=== PATIENT | female | born 1995 | race Caucasian/White ===

== ENCOUNTER 2017-09-25 21:10 | Emergency (ER) | payer OTHER ==
[~2017-09-25] VITALS: Ht 160 cm; Wt 59.0 kg
--- NOTE | 2017-09-25 21:18 | ED.ADGEN ---
Adult General Chief Complaint Chief Complaint " I want this implant taken out..." HPI HPI Patient is a 21 year old female who presents with above hx and complaints control implant un Lt. arm. Implant has been in for months. Pt. recently discharged from . Wants to get now. State the implants sometime itches.. Pt. did take some benadryl this morning. Review of Systems Review of Systems Constitutional: Denies fever or chills [] Eyes: Denies change in visual acuity, redness, or eye pain [] HENT: Denies nasal congestion or sore throat [] Respiratory: Denies cough or shortness of breath [] Cardiovascular: No additional information not addressed in HPI [] GI: Denies abdominal pain, nausea, vomiting, bloody stools or diarrhea [] : Denies dysuria or hematuria [] Musculoskeletal: Denies back pain or joint pain [] Integument: Denies rash or skin lesions [] Complaints that implant causes her arm to itch. Neurologic: Denies headache, focal weakness or sensory changes [] Endocrine: Denies polyuria or polydipsia [] All other systems were reviewed and found to be within normal limits, except as documented in this note. Family History Family History Non Contributory Current Medications Current Medications See Nursing Allergies Allergies Possible allergy to implant Physical Exam Physical Exam Constitutional: Well developed, well nourished, no acute distress, non-toxic appearance. [] HENT: Normocephalic, atraumatic, bilateral external ears normal, oropharynx moist, no oral exudates, nose normal. [] Eyes: PERRLA, EOMI, conjunctiva normal, no discharge. [] Neck: Normal range of motion, no tenderness, supple, no stridor. [] Cardiovascular:Heart rate regular rhythm, no murmur [] Lungs & Thorax: Bilateral breath sounds clear to auscultation [] Abdomen: Bowel sounds normal, soft, no tenderness, no masses, no pulsatile masses. [] Skin: Warm, dry, no erythema, no rash. [] Small area of erythema over implant site Lt arm. Back: No tenderness, no CVA tenderness. [] Extremities: No tenderness, no cyanosis, no clubbing, ROM intact, no edema. [] Neurologic: Alert and oriented X 3, normal motor function, normal sensory function, no focal deficits noted. [] Psychologic: Affect normal, judgement normal, mood normal. [] EKG EKG [] Radiology/Procedures Radiology/Procedures [] Course & Med Decision Making Course & Med Decision Making Pertinent Labs and Imaging studies reviewed. (See chart for details). Follow with alodize machine operator for removal. [] Final Impression Final Impression 1. Request for control implant removal[] Problems: Dragon Disclaimer Dragon Disclaimer This electronic medical record was generated, in whole or in part, using a voice recognition dictation system. MARK SAGASTUME MD Sep 25, 2017 21:18
[2017-09-25 21:30] VITALS: BP 140/76
== END 2017-09-25 22:00 | disposition home or self-care (01) ==
LOC: ER 21:10
DX: Z30.8 Encounter for other contraceptive management (principal); T85.898A Other specified complication of other internal prosthetic devices, implants and grafts, initial encounter
CPT/HCPCS: 99281

== ENCOUNTER 2018-02-06 04:25 | Emergency (ER) | payer OTHER ==
[~2018-02-06] VITALS: Ht 160 cm; Wt 61.0 kg
[2018-02-06 04:28] VITALS: BP 137/94
[2018-02-06] MEDS ORDERED: IV RINGERS SOLUTION,LACTATED 1,000 ML IV SCH (04:50)
--- NOTE | 2018-02-06 04:57 | ED.ADGEN ---
Past History Past Medical History: No Pertinent History, Other Past Surgical History: No Surgical History Alcohol Use: None Drug Use: None Adult General Chief Complaint Chief Complaint ".. I ve been having chest pain off and on...for past 2 months.. but it has been constant tonight... and my mother recently diagnosis of long QT syndrome... and she said I needed to get checked out..." HPI HPI Patient is a 22 year old female who presents with above hx and complaints of central non-radiating chest pain. Pt. denies any trauma or travel or specific ill contact.s. Pt. is on control. Pt. normally follows at [facility] for care. Pt is currently feeding her 7 month by breast feeding. Pt. hx limited with her family. She states she does not talk to her family, but does not know of any sudden deaths in her family members. Review of Systems Review of Systems Constitutional: Denies fever or chills [] Eyes: Denies change in visual acuity, redness, or eye pain [] HENT: Denies nasal congestion or sore throat [] Respiratory: Denies cough or shortness of breath [] Cardiovascular: No additional information not addressed in HPI [] GI: Denies abdominal pain, nausea, vomiting, bloody stools or diarrhea [] : Denies dysuria or hematuria [] Musculoskeletal: Denies back pain or joint pain [] Integument: Denies rash or skin lesions [] Neurologic: Denies headache, focal weakness or sensory changes [] Endocrine: Denies polyuria or polydipsia [] All other systems were reviewed and found to be within normal limits, except as documented in this note. Family History Family History Hx. of Long QT syndrome with mother Current Medications Current Medications Current Medications Medications (Trade) Dose Ordered Sig/Edgar Start Time Stop Time Status Last Admin Dose Admin Aspirin (Children'S Aspirin) 324 mg 1X ONCE 02/06/18 05:00 02/06/18 05:01 UNV Lactated Ringer's 1,000 ml @ 1,000 mls/hr Q1H 02/06/18 04:50 02/06/18 05:49 UNV 02/06/18 05:09 1,000 MLS/HR Allergies Allergies NKDA Physical Exam Physical Exam Constitutional: Well developed, well nourished, no acute distress, non-toxic appearance. [] HENT: Normocephalic, atraumatic, bilateral external ears normal, oropharynx moist, no oral exudates, nose normal. []Painted eyebrows. Eyes: PERRLA, EOMI, conjunctiva normal, no discharge. [] Neck: Normal range of motion, no tenderness, supple, no stridor. [] Cardiovascular:Heart rate regular rhythm, no murmur [] Lungs & Thorax: Bilateral breath sounds clear to auscultation []Sternal chest pain with palpation. Abdomen: Bowel sounds normal, soft, no tenderness, no masses, no pulsatile masses. [] Skin: Warm, dry, no erythema, no rash. [] Back: No tenderness, no CVA tenderness. [] Extremities: No tenderness, no cyanosis, no clubbing, ROM intact, no edema. [] No cording noted Neurologic: Alert and oriented X 3, normal motor function, normal sensory function, no focal deficits noted. [] Psychologic: Affect anxious, judgement normal, mood normal. [] Current Patient Data Lab Results Laboratory Tests Test 02/06/18 03:53 02/06/18 04:32 02/06/18 04:50 POC Urine HCG, Qualitative hcg negative (Negative) Urine Collection Type Void Urine Color Straw Urine Clarity Clear Urine pH 6.0 Urine Specific [place] >=1.030 Urine Protein 30 mg/dl (NEG-TRACE) Urine Glucose (UA) Neg mg/dL (NEG) Urine Ketones (Stick) Neg mg/dL (NEG) Urine Blood Neg (NEG) Urine Nitrite Neg (NEG) Urine Bilirubin Neg (NEG) Urine Urobilinogen Dipstick 1 mg/dL (0.2 mg/dL) Urine Leukocyte Esterase Neg (NEG) Urine RBC Occ /HPF (0-2) Urine WBC 1-4 /HPF (0-4) Urine Squamous Epithelial Cells Mod /LPF Urine Bacteria Mod /HPF (0-FEW) Urine Mucus Mod /LPF Urine Opiates Screen Neg (NEG) Urine Methadone Screen Neg (NEG) Urine Barbiturates Neg (NEG) Urine Phencyclidine Screen Neg (NEG) Urine Amphetamine/Methamphetamine Neg (NEG) Urine Benzodiazepines Screen Neg (NEG) Urine Cocaine Screen Neg (NEG) Urine Cannabinoids Screen Neg (NEG) Urine Ethyl Alcohol Neg (NEG) White Blood Count 5.4 x10^3/uL (4.0-11.0) Red Blood Count 4.39 x10^6/uL (3.50-5.40) Hemoglobin 12.9 g/dL (12.0-15.5) Hematocrit 37.6 % (36.0-47.0) Mean Corpuscular Volume 86 fL (79-100) Mean Corpuscular Hemoglobin 29 pg (25-35) Mean Corpuscular Hemoglobin Concent 34 g/dL (31-37) Red Cell Distribution Width 13.2 % (11.5-14.5) Platelet Count 261 x10^3/uL (140-400) Neutrophils (%) (Auto) 51 % (31-73) Lymphocytes (%) (Auto) 37 % (24-48) Monocytes (%) (Auto) 9 % (0-9) Eosinophils (%) (Auto) 2 % (0-3) Basophils (%) (Auto) 1 % (0-3) Neutrophils # (Auto) 2.8 x10^3uL (1.8-7.7) Lymphocytes # (Auto) 2.0 x10^3/uL (1.0-4.8) Monocytes # (Auto) 0.5 x10^3/uL (0.0-1.1) Eosinophils # (Auto) 0.1 x10^3/uL (0.0-0.7) Basophils # (Auto) 0.0 x10^3/uL (0.0-0.2) Prothrombin Time 10.4 SEC (9.4-11.4) Prothrombin Time INR 1.0 (0.9-1.1) PTT 26 SEC (23-33) D-Dimer (Edda) 0.30 mg/L (0.00-0.50) Maternal Serum HCG Beta Subunit < 1 mIU/mL (0-6) Sodium Level 141 mmol/L (136-145) Potassium Level 3.8 mmol/L (3.5-5.1) Chloride Level 105 mmol/L (98-107) Carbon Dioxide Level 25 mmol/L (21-32) Anion Gap 11 (6-14) Blood Urea Nitrogen 8 mg/dL (7-20) Creatinine 0.9 mg/dL (0.6-1.0) Estimated GFR (Cockcroft-Gault) 78.3 Glucose Level 95 mg/dL (70-99) Calcium Level 9.0 mg/dL (8.5-10.1) Magnesium Level 1.8 mg/dL (1.8-2.4) Total Bilirubin 0.5 mg/dL (0.2-1.0) Direct Bilirubin 0.1 mg/dL (0.0-0.2) Aspartate Amino Transferase (AST) 23 U/L (15-37) Alanine Aminotransferase (ALT) 44 U/L (14-59) Alkaline Phosphatase 75 U/L (46-116) Creatine Kinase 64 U/L (26-192) Creatine Kinase MB (Mass) < 0.5 ng/mL (0.0-3.6) Creatine Kinase MB Relative Index 0.8 % (0-4) Troponin I Quantitative < 0.017 ng/mL (0-0.055) ER-Nyl-J-Type Natriuretic Peptide 33 pg/mL (0-124) Total Protein 7.2 g/dL (6.4-8.2) Albumin 3.6 g/dL (3.4-5.0) EKG EKG My interpretation EKG shows a sinus rhythm at 85 bpm. No acute morphology.[] Radiology/Procedures Radiology/Procedures [] Course & Med Decision Making Course & Med Decision Making Pertinent Labs and Imaging studies reviewed. (See chart for details). Continued daily aspirin. Follow-up primary care. Consider outpatient stress testing. Return if any concerns. [] Final Impression Final Impression 1. Chest Pain[]-chest wall Dragon Disclaimer Dragon Disclaimer This electronic medical record was generated, in whole or in part, using a voice recognition dictation system. MARK SAGASTUME MD Feb 06, 2018 04:57
[2018-02-06] MEDS ORDERED: ASPIRIN 81 MG TAB.CHEW PO ONE (05:00)
[2018-02-06 05:19] LABS: BASO % 1 % (0-3); EOS # 0.1 x10^3/uL (0.0-0.7); EOS % 2 % (0-3); HEMATOCRIT 37.6 % (36.0-47.0); HEMOGLOBIN 12.9 g/dL (12.0-15.5); LYMPH % 37 % (24-48); MEAN CORPUSCULAR HEMOGLOBIN 29 pg (25-35); MEAN CORPUSCULAR HGB CONC 34 g/dL (31-37); MEAN CORPUSCULAR VOLUME 86 fL (79-100); MONO # 0.5 x10^3/uL (0.0-1.1); MONO % 9 % (0-9); NEUT # 2.8 x10^3uL (1.8-7.7); NEUT % 51 % (31-73); PLATELET COUNT 261 x10^3/uL (140-400); RED BLOOD COUNT 4.39 x10^6/uL (3.50-5.40); RED CELL DISTRIBUTION WIDTH 13.2 % (11.5-14.5); WHITE BLOOD COUNT 5.4 x10^3/uL (4.0-11.0)
[2018-02-06 05:20] LABS: BARBITURATES NEG (NEG); BENZODIAZEPINES NEG (NEG); CANNABINOIDS NEG (NEG); COCAINE NEG (NEG); METHADONE NEG (NEG); OPIATES NEG (NEG); PHENCYCLIDINE NEG (NEG)
[2018-02-06 05:21] LABS: AMPHETAMINE/METHAMPHETAMINE NEG (NEG)
[2018-02-06 05:28] LABS: BILIRUBIN,URINE NEG (NEG); CLARITY,URINE CLEAR; COLOR,URINE STRAW; GLUCOSE,URINE NEG (NEG)
[2018-02-06 05:29] LABS: BACTERIA,URINE MOD /HPF (0-FEW); NITRITE,URINE NEG (NEG); RBC,URINE OCC /HPF (0-2); SQUAMOUS EPITHELIAL CELL,UR MOD /LPF; UROBILINOGEN,URINE 1 mg/dL (0.2 mg/dL)
[2018-02-06 05:37] LABS: ALBUMIN 3.6 g/dL (3.4-5.0); ALK PHOS 75 U/L (46-116); ALT (SGPT) 44 U/L (14-59); ANION GAP 11 (6-14); AST (SGOT) 23 U/L (15-37); BLOOD UREA NITROGEN 8 mg/dL (7-20); CARBON DIOXIDE 25 mmol/L (21-32); CHLORIDE 105 mmol/L (98-107); CREATININE 0.9 mg/dL (0.6-1.0); DIRECT BILIRUBIN 0.1 mg/dL (0.0-0.2); GFR 78.3; GLUCOSE 95 mg/dL (70-99); MAGNESIUM 1.8 mg/dL (1.8-2.4); POTASSIUM 3.8 mmol/L (3.5-5.1); SODIUM 141 mmol/L (136-145); TOTAL BILIRUBIN 0.5 mg/dL (0.2-1.0); TOTAL PROTEIN 7.2 g/dL (6.4-8.2)
--- NOTE | 2018-02-06 07:46 | RAD ---
Chest, 2 views, 02/06/2018: HISTORY: Chest pain, shortness of breath The heart size is normal. No pulmonary infiltrate is seen. There is no evidence of pleural fluid. IMPRESSION: No acute cardiopulmonary abnormality is detected. Electronically signed by: Mario Stone MD (02/06/2018 7:43 AM) [facility]
[2018-02-06 13:51] LABS: THYROID STIM HORMONE (TSH) 1.726 uIU/mL (0.358-3.740)
== END 2018-02-06 06:22 | disposition home or self-care (01) ==
LOC: ER 04:25
DX: R07.89 Other chest pain (principal)
CPT/HCPCS: 36415; 71046; 80048; 80061; 80076; 80307; 81001; 81025; 82553; 83735; 83880; 84443; 84484; 84702; 85025; 85379; 85610; 85730; 87086; 99285; J7120; G0479

== ENCOUNTER 2018-03-20 22:36 | Emergency (ER) | payer OTHER ==
[~2018-03-20] VITALS: Ht 160 cm; Wt 58.1 kg
[2018-03-20] MEDS ORDERED: KETOROLAC 30 MG/ML VIAL. IV ONE (23:30)
[2018-03-20] MEDS ORDERED: IV NORMAL SALINE 1,000ML 1,000 ML IV ONE (23:30)
[2018-03-20] MEDS ORDERED: ONDANSETRON PF 4 MG/2 ML VIAL. IV ONE (23:30)
[2018-03-20] MEDS ORDERED: FAMOTIDINE 20 MG/2 ML VIAL IVP ONE (23:30)
[2018-03-20 23:46] LABS: BASO # 0.1 x10^3/uL (0.0-0.2); BASO % 1 % (0-3); EOS # 0.1 x10^3/uL (0.0-0.7); EOS % 1 % (0-3); HEMOGLOBIN 13.5 g/dL (12.0-15.5); LYMPH # 2.9 x10^3/uL (1.0-4.8); LYMPH % 26 % (24-48); MEAN CORPUSCULAR HEMOGLOBIN 29 pg (25-35); MEAN CORPUSCULAR HGB CONC 34 g/dL (31-37); MEAN CORPUSCULAR VOLUME 86 fL (79-100); MONO # 0.6 x10^3/uL (0.0-1.1); MONO % 6 % (0-9); NEUT # 7.4 x10^3uL (1.8-7.7); NEUT % 67 % (31-73); PLATELET COUNT 320 x10^3/uL (140-400); RED BLOOD COUNT 4.63 x10^6/uL (3.50-5.40); RED CELL DISTRIBUTION WIDTH 12.9 % (11.5-14.5)
--- NOTE | 2018-03-20 23:46 | PHYS DOC ---
Past History Past Medical History: No Pertinent History, Other Past Surgical History: Other Additional Past Surgical Histo: Hand surgery Smoking: Non-smoker Alcohol Use: None Drug Use: None Adult General Chief Complaint Chief Complaint: NAUSEA/VOMITING/DIARRHEA HPI HPI Patient is a 22 year old female who presents to the ED due to abdominal pain. The pain began 1 hour ago and has been accompanied by vomiting. She states she has had pain like this in the past and she was seen and told it was due to "stress". She states the pain is "right below the rib cage and entire stomach". She has had nausea and nonbilious, nonbloody vomiting twice in the past hour. She rates the abdominal pain as a 10/10 and states it is a constant, sharp pain that does not radiate anywhere else. Nothing makes the pain better or worse. She took Tylenol to help with the pain before coming to the ED, but it has not helped. She states her LMP was 3 weeks ago. Review of Systems Review of Systems Constitutional: Denies fever or chills Eyes: Denies change in visual acuity, redness, or eye pain HENT: Denies nasal congestion or sore throat Respiratory: Denies cough or shortness of breath Cardiovascular: Denies chest pain or heart palpitations GI: Notes abdominal pain, nausea, vomiting; Denies bloody stools or diarrhea : Denies dysuria or hematuria Musculoskeletal: Denies back pain or joint pain Integument: Denies rash or skin lesions Neurologic: Denies headache, focal weakness or sensory changes Complete systems were reviewed and found to be within normal limits, except as documented in this note Family History Family History Noncontributory Current Medications Current Medications Current Medications Medications (Trade) Dose Ordered Sig/Edgar Start Time Stop Time Status Last Admin Dose Admin Famotidine (Pepcid Vial) 20 mg 1X ONCE 03/20/18 23:30 03/20/18 23:31 DC Ketorolac Tromethamine (Toradol 30mg Vial) 15 mg 1X ONCE 03/20/18 23:30 03/20/18 23:31 DC Ondansetron HCl (Zofran) 4 mg 1X ONCE 03/20/18 23:30 03/20/18 23:31 DC Sodium Chloride 1,000 ml @ 1,000 mls/hr 1X ONCE 03/20/18 23:30 03/21/18 00:29 Allergies Allergies Allergies Coded Allergies Type Severity Reaction Last Updated Verified Unable to Assess 02/06/18 No Physical Exam Physical Exam Constitutional: Well developed, well nourished, appears to be in pain, writhing around in hospital bed HENT: Normocephalic, atraumatic, oropharynx moist Eyes: Conjunctiva normal, no discharge Neck: Normal range of motion, no tenderness, supple Cardiovascular: Heart rate regular rhythm, no murmur Lungs & Thorax: Bilateral breath sounds clear to auscultation Abdomen: Soft, tender to palpation diffusely Skin: Warm, dry, no erythema Back: No tenderness, no CVA tenderness Extremities: No tenderness, ROM intact, no edema Neurologic: Alert and oriented X 3, normal motor function, normal sensory function, no focal deficits noted Psychologic: Affect normal, judgement normal, mood normal Current Patient Data Lab Results Laboratory Tests Test 03/20/18 23:08 POC Urine HCG, Qualitative hcg negative (Negative) EKG EKG [] Radiology/Procedures Radiology/Procedures PROCEDURE: CT ABD PELV W/ IV CONTRST ONLY INDICATION: NAUSEA VOMITING, DIFFUSE ABDOMINAL PAIN BUT MOSTLY EPIGASTRIC/RUQ
NO HX
GAVE OMNI 300 75ML IV COMPARISON: None. TECHNIQUE: Axial CT images obtained through the abdomen and pelvis with contrast. One or more of the following individualized dose reduction techniques were utilized for this examination: 1. Automated exposure control; 2. Adjustment of the mA and/or kV according to patient size; 3. Use of iterative reconstruction technique. FINDINGS: Abdominal aorta is not aneurysmal. The gallbladder somewhat distended with gallstones suspected. Mild prominence of the wall is also suspected measuring up to approximately 3 mm but difficult evaluation on CT. No peripancreatic fluid collection. Spleen unremarkable. No left-sided hydronephrosis. Urinary bladder has minimal urine within it at time of exam. No right-sided hydronephrosis. The appendix measures up to about 6 mm without adjacent inflammatory changes. No dilated loops of bowel to suggest obstruction. IMPRESSION: 1. There is some dilatation of the gallbladder with suspicion for gallstones. May be helpful to obtain a ultrasound to further evaluate for gallbladder disease given these findings. There is also some questionable mild prominence of some of the intrahepatic bile ducts. 2. No evidence of bowel obstruction. 3. No hydronephrosis or periappendiceal inflammation Electronically signed by: Tapan Willams MD (03/21/2018 1:29 AM) [id number] Course & Med Decision Making Course & Med Decision Making Patient is a 22 year old female who presents to the ED due to abdominal pain, nausea, and vomiting. This began one hour ago. Pertinent Labs and Imaging studies reviewed. (See chart for details). Urine hcg was negative. Patient was given Ketorolac, famotidine, and Zofran for her symptoms, as well as 1L normal saline with interval improvement of symptoms. CBC and CMP showed no significant abnormalities. LFTs/lipase also within normal limits. CT of the abdomen and pelvis with IV contrast showed cholelithiasis without definitive signs of cholecystitis or choledocholithiasis. Discussed findings with patient. Offered to call light technician to perform ultrasound in the emergency department for further evaluation, transfer for intractable pain and nausea to [facility] for surgical evaluation, or discharge home with prescriptions for pain and nausea and number for outpatient follow-up with surgeon. Patient elected to follow up as outpatient with general surgeon. Patient stable for discharge with outpatient follow-up with PCP/general surgery. General surgery referral provided. Discussed findings and plan with patient and family, who acknowledge understanding and agreement. Dragon Disclaimer Dragon Disclaimer This electronic medical record was generated, in whole or in part, using a voice recognition dictation system. Departure Departure: Impression: Primary Impression: Biliary colic Disposition: 01 HOME, SELF-CARE Condition: STABLE Referrals: JUANJO BOWMAN MD (PCP) JANET JACOB MD, THOMAS W MD Patient Instructions: Biliary Colic Scripts Famotidine (PEPCID) 20 Mg Tablet 1 TAB PO BID, #20 TAB 0 Refills Prov: MICK GIBSON DO 03/21/18 Hydrocodone Bit/Acetaminophen (NORCO 5-325 TABLET) 1 Each Tablet 1 TAB PO Q6HRS for PAIN, #14 TAB Prov: MICK GIBSON DO 03/21/18 Ondansetron (ONDANSETRON ODT) 4 Mg Tab.rapdis 1 TAB PO PRN Q6-8HRS for NAUSEA, #16 TAB Prov: MICK GIBSON DO 03/21/18 MICK GIBSON DO Mar 20, 2018 23:46
[2018-03-20 23:51] LABS: BACTERIA,URINE 0 /HPF (0-FEW); BILIRUBIN,URINE NEG (NEG); CLARITY,URINE CLEAR; COLOR,URINE YELLOW; GLUCOSE,URINE NEG (NEG); NITRITE,URINE NEG (NEG); RBC,URINE 0 /HPF (0-2); SQUAMOUS EPITHELIAL CELL,UR MOD /LPF; UROBILINOGEN,URINE 0.2 mg/dL (0.2 mg/dL)
[2018-03-20 23:58] LABS: ALBUMIN 3.5 g/dL (3.4-5.0); ALBUMIN/GLOBULIN RATIO 0.8 (1.0-1.7); CALCIUM 9.3 mg/dL (8.5-10.1); GFR 69.3; MAGNESIUM 1.7 mg/dL (1.8-2.4); POTASSIUM 3.2 mmol/L (3.5-5.1); TOTAL BILIRUBIN 0.3 mg/dL (0.2-1.0); TOTAL PROTEIN 7.8 g/dL (6.4-8.2)
[2018-03-21] MEDS ORDERED: IOHEXOL 300 MG/ML 75 ML VIAL. IV ONE (00:30)
[2018-03-21] MEDS ORDERED: CONTRAST GIVEN MC PRN (00:30)
--- NOTE | 2018-03-21 01:33 | RAD ---
INDICATION: NAUSEA VOMITING, DIFFUSE ABDOMINAL PAIN BUT MOSTLY EPIGASTRIC/RUQ
NO HX
GAVE OMNI 300 75ML IV COMPARISON: None. TECHNIQUE: Axial CT images obtained through the abdomen and pelvis with contrast. One or more of the following individualized dose reduction techniques were utilized for this examination: 1. Automated exposure control; 2. Adjustment of the mA and/or kV according to patient size; 3. Use of iterative reconstruction technique. FINDINGS: Abdominal aorta is not aneurysmal. The gallbladder somewhat distended with gallstones suspected. Mild prominence of the wall is also suspected measuring up to approximately 3 mm but difficult evaluation on CT. No peripancreatic fluid collection. Spleen unremarkable. No left-sided hydronephrosis. Urinary bladder has minimal urine within it at time of exam. No right-sided hydronephrosis. The appendix measures up to about 6 mm without adjacent inflammatory changes. No dilated loops of bowel to suggest obstruction. IMPRESSION: 1. There is some dilatation of the gallbladder with suspicion for gallstones. May be helpful to obtain a ultrasound to further evaluate for gallbladder disease given these findings. There is also some questionable mild prominence of some of the intrahepatic bile ducts. 2. No evidence of bowel obstruction. 3. No hydronephrosis or periappendiceal inflammation Electronically signed by: Tapan Willams MD (03/21/2018 1:29 AM) [facility]
[2018-03-21] MEDS ORDERED: ONDA4TAB12 PO (01:52)
[2018-03-21] MEDS ORDERED: FAMO-63 PO (01:52)
[2018-03-21] MEDS ORDERED: HYDR-971 PO (01:52)
[2018-03-21 02:00] VITALS: BP 110/53
== END 2018-03-21 02:05 | disposition home or self-care (01) ==
LOC: ER 22:36
DX: K80.50 Calculus of bile duct without cholangitis or cholecystitis without obstruction (principal); R11.2 Nausea with vomiting, unspecified
CPT/HCPCS: 36415; 74177; 80053; 81001; 81025; 83690; 83735; 85025; 87086; 96361; 96374; 96375; 99285; J1885; J2405; Q9967; S0028; J7030

== ENCOUNTER 2018-05-02 16:23 | Emergency (ER) | payer OTHER ==
[~2018-05-02 16:23] MED LIST: FAMO-63 PO; HYDR-3165 PO; ONDA4TAB12 PO
[2018-05-02] MEDS ORDERED: IV NORMAL SALINE 1,000ML 1,000 ML IV SCH (16:34)
[2018-05-02 16:56] LABS: BASO % 1 % (0-3); EOS % 0 % (0-3); HEMATOCRIT 36.9 % (36.0-47.0); HEMOGLOBIN 12.4 g/dL (12.0-15.5); LYMPH % 25 % (24-48); MEAN CORPUSCULAR HEMOGLOBIN 29 pg (25-35); MEAN CORPUSCULAR HGB CONC 34 g/dL (31-37); MEAN CORPUSCULAR VOLUME 88 fL (79-100); MONO # 0.7 x10^3/uL (0.0-1.1); MONO % 8 % (0-9); NEUT # 5.3 x10^3uL (1.8-7.7); NEUT % 66 % (31-73); PLATELET COUNT 328 x10^3/uL (140-400); RED BLOOD COUNT 4.22 x10^6/uL (3.50-5.40); RED CELL DISTRIBUTION WIDTH 13.1 % (11.5-14.5)
[2018-05-02] MEDS ORDERED: ONDANSETRON PF 4 MG/2 ML VIAL. IV ONE (17:00)
[2018-05-02] MEDS ORDERED: KETOROLAC 30 MG/ML VIAL. IV ONE (17:00)
[2018-05-02 17:12] LABS: ALBUMIN 3.5 g/dL (3.4-5.0); ALBUMIN/GLOBULIN RATIO 0.9 (1.0-1.7); CALCIUM 8.6 mg/dL (8.5-10.1); CREATININE 0.9 mg/dL (0.6-1.0); GFR 78.3; POTASSIUM 3.1 mmol/L (3.5-5.1); TOTAL BILIRUBIN 0.3 mg/dL (0.2-1.0); TOTAL PROTEIN 7.6 g/dL (6.4-8.2)
[2018-05-02 17:56] LABS: BILIRUBIN,URINE NEG (NEG); CLARITY,URINE CLOUDY; COLOR,URINE YELLOW; GLUCOSE,URINE NEG (NEG); NITRITE,URINE NEG (NEG); RBC,URINE OCC /HPF (0-2); UROBILINOGEN,URINE 1 mg/dL (0.2 mg/dL)
[2018-05-02 17:57] LABS: AMORPHOUS SEDIMENT,UR PRESENT /HPF; BACTERIA,URINE MANY /HPF (0-FEW); SQUAMOUS EPITHELIAL CELL,UR FEW /LPF
[2018-05-02] MEDS ORDERED: IOHEXOL 300 MG/ML 75 ML VIAL. IV ONE (18:00)
--- NOTE | 2018-05-02 18:11 | PHYS DOC ---
Past History Past Medical History: No Pertinent History Past Surgical History: Cholecystectomy Additional Past Surgical Histo: Hand surgery Smoking: Non-smoker Alcohol Use: None Drug Use: None Adult General Chief Complaint Chief Complaint: NAUSEA/VOMITING/DIARRHEA HPI HPI Patient is a 22 year old female who presents with thinning of nausea and vomiting and abdominal pain. Patient had laparoscopic cholecystectomy at [facility] yesterday and was discharged home prescription of Lortab. Patient complaining of more than 10 episodes of vomiting and generalized abdominal pain and unable to eat food. Patient states she was able to tolerate some liquids. Patient denies fever and chills, diarrhea, urinary symptoms, . Patient did not have bowel movement after her surgery but had flatus. Review of Systems Review of Systems Constitutional: Denies fever or chills [] Eyes: Denies change in visual acuity, redness, or eye pain [] HENT: Denies nasal congestion or sore throat [] Respiratory: Denies cough or shortness of breath [] Cardiovascular: No additional information not addressed in HPI [] GI: Reports abdominal pain, nausea, vomiting, denies bloody stools or diarrhea [ ] : Denies dysuria or hematuria [] Musculoskeletal: Denies back pain or joint pain [] Integument: Denies rash or skin lesions [] Neurologic: Denies headache, focal weakness or sensory changes [] Endocrine: Denies polyuria or polydipsia [] All other systems were reviewed and found to be within normal limits, except as documented in this note. Current Medications Current Medications Current Medications Medications (Trade) Dose Ordered Sig/Edgar Start Time Stop Time Status Last Admin Dose Admin Iohexol (Omnipaque 300 Mg/ml) 75 ml 1X ONCE 05/02/18 18:00 05/02/18 18:01 DC 05/02/18 17:55 75 ML Ketorolac Tromethamine (Toradol 30mg Vial) 30 mg 1X ONCE 05/02/18 17:00 05/02/18 17:01 DC 05/02/18 16:48 30 MG Ondansetron HCl (Zofran) 4 mg 1X ONCE 05/02/18 17:00 05/02/18 17:01 DC 05/02/18 16:48 4 MG Sodium Chloride 1,000 ml @ 1,000 mls/hr Q1H 05/02/18 16:34 05/02/18 17:33 DC 05/02/18 16:47 1,000 MLS/HR Allergies Allergies Allergies Coded Allergies Type Severity Reaction Last Updated Verified No Known Drug Allergies 03/21/18 No Physical Exam Physical Exam Constitutional: Well developed, well nourished, mild distress, non-toxic appearance. [] HENT: Normocephalic, atraumatic, oropharynx dry, no oral exudates, nose normal. [] Eyes: PERRLA, EOMI, conjunctiva normal, no discharge. [] Neck: Normal range of motion, no tenderness, supple, no stridor. [] Cardiovascular:Heart rate regular rhythm, no murmur [] Lungs & Thorax: Bilateral breath sounds clear to auscultation [] Abdomen: Bowel sounds normal, soft, clean surgical wound, guarding in area of surgery, no tenderness, no masses, no pulsatile masses. [] Skin: Warm, dry, no erythema, no rash. [] Back: No tenderness, no CVA tenderness. [] Extremities: No tenderness, no cyanosis, no clubbing, ROM intact, no edema. [] Neurologic: Alert and oriented X 3, normal motor function, normal sensory function, no focal deficits noted. [] Psychologic: Affect normal, judgement normal, mood normal. [] Current Patient Data Vital Signs Vital Signs Date Time Temp Pulse Resp B/P (MAP) Pulse Ox O2 Delivery O2 Flow Rate FiO2 05/02/18 16:28 98.2 80 16 99 Room Air Lab Results Laboratory Tests Test 05/02/18 16:42 05/02/18 17:30 White Blood Count 8.0 x10^3/uL (4.0-11.0) Red Blood Count 4.22 x10^6/uL (3.50-5.40) Hemoglobin 12.4 g/dL (12.0-15.5) Hematocrit 36.9 % (36.0-47.0) Mean Corpuscular Volume 88 fL (79-100) Mean Corpuscular Hemoglobin 29 pg (25-35) Mean Corpuscular Hemoglobin Concent 34 g/dL (31-37) Red Cell Distribution Width 13.1 % (11.5-14.5) Platelet Count 328 x10^3/uL (140-400) Neutrophils (%) (Auto) 66 % (31-73) Lymphocytes (%) (Auto) 25 % (24-48) Monocytes (%) (Auto) 8 % (0-9) Eosinophils (%) (Auto) 0 % (0-3) Basophils (%) (Auto) 1 % (0-3) Neutrophils # (Auto) 5.3 x10^3uL (1.8-7.7) Lymphocytes # (Auto) 2.0 x10^3/uL (1.0-4.8) Monocytes # (Auto) 0.7 x10^3/uL (0.0-1.1) Eosinophils # (Auto) 0.0 x10^3/uL (0.0-0.7) Basophils # (Auto) 0.0 x10^3/uL (0.0-0.2) Sodium Level 138 mmol/L (136-145) Potassium Level 3.1 mmol/L (3.5-5.1) L Chloride Level 100 mmol/L (98-107) Carbon Dioxide Level 29 mmol/L (21-32) Anion Gap 9 (6-14) Blood Urea Nitrogen 9 mg/dL (7-20) Creatinine 0.9 mg/dL (0.6-1.0) Estimated GFR (Cockcroft-Gault) 78.3 BUN/Creatinine Ratio 10 (6-20) Glucose Level 102 mg/dL (70-99) H Calcium Level 8.6 mg/dL (8.5-10.1) Total Bilirubin 0.3 mg/dL (0.2-1.0) Aspartate Amino Transferase (AST) 22 U/L (15-37) Alanine Aminotransferase (ALT) 33 U/L (14-59) Alkaline Phosphatase 68 U/L (46-116) Total Protein 7.6 g/dL (6.4-8.2) Albumin 3.5 g/dL (3.4-5.0) Albumin/Globulin Ratio 0.9 (1.0-1.7) L Lipase 237 U/L (73-393) Urine Collection Type Unknown Urine Color Yellow Urine Clarity Cloudy Urine pH 7.0 Urine Specific [place] 1.020 Urine Protein Neg (NEG-TRACE) Urine Glucose (UA) Neg mg/dL (NEG) Urine Ketones (Stick) Neg mg/dL (NEG) Urine Blood Neg (NEG) Urine Nitrite Neg (NEG) Urine Bilirubin Neg (NEG) Urine Urobilinogen Dipstick 1 mg/dL (0.2 mg/dL) Urine Leukocyte Esterase Mod (NEG) Urine RBC Occ /HPF (0-2) Urine WBC 11-20 /HPF (0-4) Urine Squamous Epithelial Cells Few /LPF Urine Amorphous Sediment Present /HPF Urine Bacteria Many /HPF (0-FEW) EKG EKG [] Radiology/Procedures Radiology/Procedures CT= small amt free fluid. No acute surgical findings.[] Course & Med Decision Making Course & Med Decision Making Pertinent Labs and Imaging studies reviewed. (See chart for details) Evaluation of patient in ER showed 22-year-old female patient with complaining of nausea and vomiting after laparoscopic cholecystectomy yesterday. She had potassium of 3.1. Of abdomen and pelvis is pending. Patient care transferred to Dr. Smith at [address]. See Dr[address] Garcia report for details. 1. Post op. discomfort-Cholecystectomy 2. Nausea and Vomiting 3. UTI 4. Hypokalemia 3.1 Pt. push clear fluids and fruit juices. Clear fluids x 24 hr. No solid or milk products. Take Zofran 8 up to 4 x day for vomiting. Pt. take Bactrim DS twice a day. Must follow up with primary and surgery as directed. Return if any concerns. Dragon Disclaimer Dragon Disclaimer This electronic medical record was generated, in whole or in part, using a voice recognition dictation system. Departure Departure: Impression: Primary Impression: Nausea & vomiting Additional Impressions: Hypokalemia Postoperative abdominal pain Referrals: JUANJO BOWMAN MD (PCP) Scripts Ondansetron (ZOFRAN ODT) 8 Mg Tab.rapdis 8 MG PO QIDPRN PRN for NAUSEA/VOMITING, #30 BOTTLE Prov: MRAK SMITH MD 05/02/18 Sulfamethoxazole/Trimethoprim (BACTRIM DS TABLET) 1 Each Tablet 1 TAB PO BID for uti, #14 TAB Prov: MARK SMITH MD 05/02/18 Problem Qualifiers ELIJAH GARCIA MD May 02, 2018 18:10 MARK SMITH MD May 03, 2018 09:11
--- NOTE | 2018-05-02 18:16 | RAD ---
CT ABD PELV W/ IV CONTRST ONLY dated 05/02/2018 5:39 PM Indication: Abdominal pain.cholecystectomy yesterday, nausea and vomiting and pain, HX of D+C , OMNI 300, 75 mL . Comparison: 03/21/2018 Technique: Contiguous axial imaging of the abdomen and pelvis performed after the intravenous administration of 75 cc Omnipaque 300 One or more of the following individualized dose reduction techniques were utilized for this examination: 1. Automated exposure control 2. Adjustment of the mA and/or kV according to patient size 3. Use of iterative reconstruction technique Findings: Limited images of lung bases are clear. Heart size within normal limits. No pleural or pericardial effusion. Liver, spleen, pancreas, adrenal glands and kidneys are unremarkable. No hydronephrosis. The gallbladder is surgically absent. Unopacified GI tract normal in caliber and contour. No focal bowel wall thickening. No inflammatory stranding in the mesentery. Appendix normal in caliber. No ascites or lymphadenopathy. Abdominal aorta normal in caliber. Pelvis show nondistended urinary bladder. Uterus and adnexa are unremarkable. There is a small amount of free fluid. No pelvic lymphadenopathy. Bone windows show no acute findings. There is some indurated subcutaneous tissues of the anterior abdominal wall with small bubbles of gas, likely related to subcutaneous injection sites. IMPRESSION: 1. No acute abnormality of abdomen or pelvis. Normal appendix. 2. Interval cholecystectomy. 3. Small amount of free pelvic fluid, nonspecific. Electronically signed by: Praful Trejo MD (05/02/2018 6:13 PM) [facility]
[2018-05-02] MEDS ORDERED: SULF1TAB24 PO (18:25)
[2018-05-02] MEDS ORDERED: ONDA8TAB12 PO (18:25)
[2018-05-02] MEDS ORDERED: SMZ/TMP 800/160MG TABLET. PO ONE (18:30)
[2018-05-02 19:19] VITALS: BP 122/78
== END 2018-05-02 19:21 | disposition home or self-care (01) ==
LOC: ER 16:23
DX: N39.0 Urinary tract infection, site not specified (principal); G89.18 Other acute postprocedural pain; R10.84 Generalized abdominal pain; R11.2 Nausea with vomiting, unspecified; E87.6 Hypokalemia; Z90.49 Acquired absence of other specified parts of digestive tract
CPT/HCPCS: 36415; 74177; 80053; 81001; 83690; 85025; 87086; 96361; 96374; 96375; 99285; J1885; J2405; Q9967; J7030

== ENCOUNTER 2018-08-26 18:33 | Emergency (ER) | payer OTHER ==
[~2018-08-26] VITALS: Ht 160 cm; Wt 53.1 kg
[~2018-08-26 18:33] MED LIST changes: +ONDA8TAB12 PO; +SULF1TAB24 PO
--- NOTE | 2018-08-26 18:38 | ED.ADGEN ---
Past History Past Medical History: No Pertinent History Past Surgical History: Cholecystectomy Additional Past Surgical Histo: Hand surgery Smoking: Non-smoker Alcohol Use: None Drug Use: None Adult General Chief Complaint Chief Complaint ".. I ve got this really sore throat... I can't hardly swallow... " HPI HPI Patient is a 22 year old female was carried dependent who presents with above hx and complaints sore throat and fever. Patient states symptoms present for the past couple days. Eating food is painful. Patient denies any specific ill contacts. Patient denies any travel. Patient denies any history immunosuppression. Patient is normally healthy. No exposures to personnel have been overseas recently. She states sore throat feels like previous episode of streptococcal infection. Patient normally follows at [place] Review of Systems Review of Systems Constitutional: Subjective complaints of fever fever or chills [] Eyes: Denies change in visual acuity, redness, or eye pain [] HENT: History of nasal congestion , drainage and sore throat [] Respiratory: Denies cough or shortness of breath [] Cardiovascular: No additional information not addressed in HPI [] GI: Denies abdominal pain, nausea, vomiting, bloody stools or diarrhea [] : Denies dysuria or hematuria [] Musculoskeletal: Denies back pain or joint pain [] Integument: Denies rash or skin lesions [] Neurologic: Denies headache, focal weakness or sensory changes [] Endocrine: Denies polyuria or polydipsia [] All other systems were reviewed and found to be within normal limits, except as documented in this note. Family History Family History Noncontributory Current Medications Current Medications Current Medications Medications (Trade) Dose Ordered Sig/Edgar Start Time Stop Time Status Last Admin Dose Admin Prednisone (Prednisone) 50 mg 1X ONCE 08/26/18 18:45 08/26/18 18:46 DC 08/26/18 19:37 50 MG Allergies Allergies Allergies Coded Allergies Type Severity Reaction Last Updated Verified No Known Drug Allergies 03/21/18 No Physical Exam Physical Exam Constitutional: Well developed, well nourished, moderately acute distress, non- toxic appearance. [] HENT: Normocephalic, atraumatic, bilateral external ears normal, oropharynx moist, injected pharynx with postnasal drip, no oral exudates, nose swollen turbinates with clear rhinorrhea Eyes: PERRLA, EOMI, conjunctiva normal, no discharge. [] Neck: Normal range of motion, no tenderness, supple, no stridor. [] No adenopathy anterior chain Cardiovascular:Heart rate regular rhythm, no murmur [] Lungs & Thorax: Bilateral breath sounds clear to auscultation [] Abdomen: Bowel sounds normal, soft, no tenderness, no masses, no pulsatile masses. [] Skin: Warm, dry, no erythema, no rash. [] Back: No tenderness, no CVA tenderness. [] Extremities: No tenderness, no cyanosis, no clubbing, ROM intact, no edema. [] Neurologic: Alert and oriented X 3, normal motor function, normal sensory function, no focal deficits noted. [] Psychologic: Affect anxious, judgement normal, mood normal. [] Current Patient Data Vital Signs Vital Signs Date Time Temp Pulse Resp B/P (MAP) Pulse Ox O2 Delivery O2 Flow Rate FiO2 08/26/18 20:30 76 16 126/70 (88) 99 Room Air 08/26/18 18:40 98.5 Lab Results Laboratory Tests Test 08/26/18 18:55 08/26/18 19:00 Influenza Type A (Rapid) Negative (NEGATIVE) Influenza Type B (Rapid) Negative (NEGATIVE) Group A Streptococcus Rapid Negative (NEGATIVE) Urine Collection Type Unknown Urine Color Yellow Urine Clarity Hazy Urine pH 6.5 Urine Specific [place] 1.020 Urine Protein Neg (NEG-TRACE) Urine Glucose (UA) Neg mg/dL (NEG) Urine Ketones (Stick) Neg mg/dL (NEG) Urine Blood Neg (NEG) Urine Nitrite Neg (NEG) Urine Bilirubin Neg (NEG) Urine Urobilinogen Dipstick 0.2 mg/dL (0.2 mg/dL) Urine Leukocyte Esterase Trace (NEG) Urine RBC 0 /HPF (0-2) Urine WBC Occ /HPF (0-4) Urine Squamous Epithelial Cells None /LPF Urine Bacteria 0 /HPF (0-FEW) EKG EKG [] Radiology/Procedures Radiology/Procedures [] Course & Med Decision Making Course & Med Decision Making Pertinent Labs and Imaging studies reviewed. (See chart for details). Patient to gargle with Listerine 4 times a day. Patient take Tylenol and ibuprofen as needed for pain. Patient may take Benadryl liquid for topical anesthesia. Patient may take liquid ibuprofen for topical anesthesia. Push fluids. Follow-up primary care. Return if any concerns. [] Final Impression Final Impression 1. Pharyngitis[]-viral syndrome Dragon Disclaimer Esa Disclaimer This electronic medical record was generated, in whole or in part, using a voice recognition dictation system. Discharge Summary Visit Information Final Diagnosis Problems Medical Problems: (1) Viral syndrome Status: Acute Brief Hospital Course Allergies Allergies Coded Allergies Type Severity Reaction Last Updated Verified No Known Drug Allergies 03/21/18 No Vital Signs Vital Signs Date Time Temp Pulse Resp B/P (MAP) Pulse Ox O2 Delivery O2 Flow Rate FiO2 08/26/18 20:30 76 16 126/70 (88) 99 Room Air 08/26/18 18:40 98.5 Lab Results Laboratory Tests Test 08/26/18 18:55 08/26/18 19:00 Influenza Type A (Rapid) Negative (NEGATIVE) Influenza Type B (Rapid) Negative (NEGATIVE) Group A Streptococcus Rapid Negative (NEGATIVE) Urine Collection Type Unknown Urine Color Yellow Urine Clarity Hazy Urine pH 6.5 Urine Specific [place] 1.020 Urine Protein Neg (NEG-TRACE) Urine Glucose (UA) Neg mg/dL (NEG) Urine Ketones (Stick) Neg mg/dL (NEG) Urine Blood Neg (NEG) Urine Nitrite Neg (NEG) Urine Bilirubin Neg (NEG) Urine Urobilinogen Dipstick 0.2 mg/dL (0.2 mg/dL) Urine Leukocyte Esterase Trace (NEG) Urine RBC 0 /HPF (0-2) Urine WBC Occ /HPF (0-4) Urine Squamous Epithelial Cells None /LPF Urine Bacteria 0 /HPF (0-FEW) Brief Hospital Course Ms. Rogers is a 22 old female who presented with viral pharyngitis Discharge Information Condition at Discharge: Improved, Stable Disposition/Orders: D/C to Home Dischare Medications Current Medications Prednisone (Prednisone) 50 mg 1X ONCE PO Last administered on 08/26/18at 19:37 ; Admin Dose 50 MG; Start 08/26/18 at 18:45; Stop 08/26/18 at 18:46; Status DC Active Scripts Active Benadryl Allergy (Diphenhydramine Hcl) 12.5 Mg/5 Ml Liquid 25 Mg PO QIDPRN Ibuprofen 100 Mg/5 Ml Oral.susp 400 Mg PO QIDPRN PRN Zofran Odt (Ondansetron) 8 Mg Tab.rapdis 8 Mg PO QIDPRN PRN Bactrim Ds Tablet (Sulfamethoxazole/Trimethoprim) 1 Each Tablet 1 Tab PO BID Pepcid (Famotidine) 20 Mg Tablet 1 Tab PO BID [place] 5-325 Tablet (Hydrocodone Bit/Acetaminophen) 1 Each Tablet 1 Tab PO Q6HRS Ondansetron Odt (Ondansetron) 4 Mg Tab.rapdis 1 Tab PO PRN Q6-8HRS Esa Disclaimer This chart was dictated in whole or in part using Voice Recognition software in a busy, high-work load, and often noisy Emergency Department environment. It may contain unintended and wholly unrecognized errors or omissions. MARK SAGASTUME MD Aug 26, 2018 18:38
[2018-08-26] MEDS ORDERED: predniSONE 10 MG TABLET PO ONE (18:45)
[2018-08-26 19:56] LABS: BILIRUBIN,URINE NEG (NEG); CLARITY,URINE HAZY; COLOR,URINE YELLOW; GLUCOSE,URINE NEG (NEG)
[2018-08-26 19:57] LABS: BACTERIA,URINE 0 /HPF (0-FEW); NITRITE,URINE NEG (NEG); RBC,URINE 0 /HPF (0-2); UROBILINOGEN,URINE 0.2 mg/dL (0.2 mg/dL); WBC,URINE OCC /HPF (0-4)
[2018-08-26 20:06] LABS: INFLUENZA A PATIENT NEGATIVE (NEGATIVE); INFLUENZA B PATIENT NEGATIVE (NEGATIVE)
[2018-08-26] MEDS ORDERED: DIPH-121 PO (20:17)
[2018-08-26] MEDS ORDERED: IBUP100O25 PO (20:17)
[2018-08-26 20:30] VITALS: BP 126/70
== END 2018-08-26 20:38 | disposition home or self-care (01) ==
LOC: ER 18:33
DX: B34.9 Viral infection, unspecified (principal)
CPT/HCPCS: 81001; 87070; 87086; 87804; 87880; 99283; J7512

== ENCOUNTER 2018-10-20 01:16 | Emergency (ER) | payer OTHER ==
[~2018-10-20] VITALS: Ht 160 cm; Wt 58.0 kg
[~2018-10-20 01:16] MED LIST changes: +DIPH-121 PO; +IBUP100O25 PO
--- NOTE | 2018-10-20 01:28 | ED.ADGEN ---
Past History Past Medical History: No Pertinent History Past Surgical History: Cholecystectomy Additional Past Surgical Histo: Hand surgery Smoking: Non-smoker Alcohol Use: None Drug Use: None Adult General Chief Complaint Chief Complaint "..I ve been having chest pain now.. for over a month.. here in center of my chest.. with deep breaths. .. or any movements..." HPI HPI Patient is a 22 year old female who presents with above hx and complaints of Chest pain the past month. Pt. relates chest wall component, central and with movement or deep breaths, or coughs.. Pt. denies trauma, specific ill contacts. Pt. currently rates pain as 5/10. 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 Pt. does not smoke. Pt. recent took off control patch because it caused hives. Pt. also has had her hair started falling out. Review of Systems Review of Systems Constitutional: Denies fever or chills [] Eyes: Denies change in visual acuity, redness, or eye pain [] HENT: Denies nasal congestion or sore throat [] Respiratory: Denies cough or shortness of breath [] Cardiovascular: No additional information not addressed in HPI [] GI: Denies abdominal pain, nausea, vomiting, bloody stools or diarrhea [] : Denies dysuria or hematuria [] Musculoskeletal: Denies back pain or joint pain [] Integument: Denies rash or skin lesions [] Hair loss. Neurologic: Denies headache, focal weakness or sensory changes [] Endocrine: Denies polyuria or polydipsia [] All other systems were reviewed and found to be within normal limits, except as documented in this note. Family History Family History Mother has long Q-T syndrome, Transplant Current Medications Current Medications Current Medications Medications (Trade) Dose Ordered Sig/Edgar Start Time Stop Time Status Last Admin Dose Admin Ketorolac Tromethamine (Toradol 30mg Vial) 30 mg 1X ONCE 10/20/18 03:00 10/20/18 03:01 DC 10/20/18 03:06 30 MG Lactated Ringer's 1,000 ml @ 1,000 mls/hr Q1H 10/20/18 01:45 10/20/18 02:44 DC Allergies Allergies Allergies Coded Allergies Type Severity Reaction Last Updated Verified ethinyl estradiol Allergy Intermediate Hives 10/20/18 Yes etonogestrel Allergy Intermediate Hives 10/20/18 Yes norelgestromin Allergy Intermediate Hives 10/20/18 Yes Physical Exam Physical Exam Constitutional: Well developed, well nourished, moderate distress, non-toxic appearance. [] HENT: Normocephalic, atraumatic, bilateral external ears normal, oropharynx moist, no oral exudates, nose normal. [] Eyes: PERRLA, EOMI, conjunctiva normal, no discharge. [] Neck: Normal range of motion, no tenderness, supple, no stridor. [] Cardiovascular:Heart rate regular rhythm, no murmur [] Lungs & Thorax: Bilateral breath sounds equal apexes on auscultation [] Abdomen: Bowel sounds normal, soft, no tenderness, no masses, no pulsatile masses. [] Old surgery scars. Skin: Warm, dry, no erythema, no rash. [] Back: No tenderness, no CVA tenderness. [] Extremities: No tenderness, no cyanosis, no clubbing, ROM intact, no edema. [] No cording appreciated. Neurologic: Alert and oriented X 3, normal motor function, normal sensory function, no focal deficits noted. [] Psychologic: Affect anxious, judgement normal, mood normal. [] Current Patient Data Vital Signs Vital Signs Date Time Temp Pulse Resp B/P (MAP) Pulse Ox O2 Delivery O2 Flow Rate FiO2 10/20/18 01:20 98.4 74 22 100 Room Air Lab Results Laboratory Tests Test 10/20/18 01:35 10/20/18 01:48 Urine Collection Type Unknown Urine Color Yellow Urine Clarity Clear Urine pH 6.0 Urine Specific [place] 1.025 Urine Protein Neg (NEG-TRACE) Urine Glucose (UA) Neg mg/dL (NEG) Urine Ketones (Stick) Neg mg/dL (NEG) Urine Blood Neg (NEG) Urine Nitrite Neg (NEG) Urine Bilirubin Neg (NEG) Urine Urobilinogen Dipstick 0.2 mg/dL (0.2 mg/dL) Urine Leukocyte Esterase Neg (NEG) Urine RBC 1-2 /HPF (0-2) Urine WBC 1-4 /HPF (0-4) Urine Squamous Epithelial Cells Mod /LPF Urine Bacteria Few /HPF (0-FEW) Urine Mucus Mod /LPF Urine Yeast Present /HPF Urine Test Negative (NEG) Urine Opiates Screen Neg (NEG) Urine Methadone Screen Neg (NEG) Urine Barbiturates Neg (NEG) Urine Phencyclidine Screen Neg (NEG) Urine Amphetamine/Methamphetamine Neg (NEG) Urine Benzodiazepines Screen Neg (NEG) Urine Cocaine Screen Neg (NEG) Urine Cannabinoids Screen Neg (NEG) Urine Ethyl Alcohol Neg (NEG) White Blood Count 6.0 x10^3/uL (4.0-11.0) Red Blood Count 4.40 x10^6/uL (3.50-5.40) Hemoglobin 12.7 g/dL (12.0-15.5) Hematocrit 38.0 % (36.0-47.0) Mean Corpuscular Volume 86 fL (79-100) Mean Corpuscular Hemoglobin 29 pg (25-35) Mean Corpuscular Hemoglobin Concent 33 g/dL (31-37) Red Cell Distribution Width 13.9 % (11.5-14.5) Platelet Count 294 x10^3/uL (140-400) Neutrophils (%) (Auto) 57 % (31-73) Lymphocytes (%) (Auto) 34 % (24-48) Monocytes (%) (Auto) 7 % (0-9) Eosinophils (%) (Auto) 1 % (0-3) Basophils (%) (Auto) 0 % (0-3) Neutrophils # (Auto) 3.5 x10^3uL (1.8-7.7) Lymphocytes # (Auto) 2.1 x10^3/uL (1.0-4.8) Monocytes # (Auto) 0.4 x10^3/uL (0.0-1.1) Eosinophils # (Auto) 0.1 x10^3/uL (0.0-0.7) Basophils # (Auto) 0.0 x10^3/uL (0.0-0.2) Prothrombin Time 10.2 SEC (9.4-11.4) Prothrombin Time INR 1.0 (0.9-1.1) PTT 26 SEC (23-33) D-Dimer (Edda) 0.27 mg/L (0.00-0.50) Sodium Level 140 mmol/L (136-145) Potassium Level 3.5 mmol/L (3.5-5.1) Chloride Level 102 mmol/L (98-107) Carbon Dioxide Level 27 mmol/L (21-32) Anion Gap 11 (6-14) Blood Urea Nitrogen 13 mg/dL (7-20) Creatinine 0.7 mg/dL (0.6-1.0) Estimated GFR (Cockcroft-Gault) 104.6 Glucose Level 84 mg/dL (70-99) Calcium Level 8.9 mg/dL (8.5-10.1) Magnesium Level 1.8 mg/dL (1.8-2.4) Total Bilirubin 0.2 mg/dL (0.2-1.0) Direct Bilirubin 0.1 mg/dL (0.0-0.2) Aspartate Amino Transferase (AST) 17 U/L (15-37) Alanine Aminotransferase (ALT) 25 U/L (14-59) Alkaline Phosphatase 63 U/L (46-116) Creatine Kinase 81 U/L (26-192) Troponin I Quantitative < 0.017 ng/mL (0-0.055) OD-Lyt-X-Type Natriuretic Peptide 36 pg/mL (0-124) Total Protein 7.9 g/dL (6.4-8.2) Albumin 3.5 g/dL (3.4-5.0) Lipase 148 U/L (73-393) EKG EKG My interpretation EKG shows a sinus rhythm at 68 bpm. There is a contour abnormalities anterior lateral region. No findings acute STEMI of contralateral changes. No finding to prolonged QT interval.[] Radiology/Procedures Radiology/Procedures Refused CXR Course & Med Decision Making Course & Med Decision Making Pertinent Labs and Imaging studies reviewed. (See chart for details) Pt. declines waiting to complete 2nd EKG or trop. or her chest x-ray. Pt. demanding discharge. Pt encouraged to follow up with primary and get out pt. stress testing. Return at any time for completion of Chest pain work up. Pt. take tylenol and ibuprofen for pain. Pt. follow up pending TSH and Lipid panel. [] Final Impression Final Impression 1. Chest Pain[]- chest wall pain. Dragon Disclaimer Dragon Disclaimer This electronic medical record was generated, in whole or in part, using a voice recognition dictation system. Discharge Summary Visit Information Final Diagnosis Problems Medical Problems: (1) Chest wall pain Status: Acute Brief Hospital Course Allergies Allergies Coded Allergies Type Severity Reaction Last Updated Verified ethinyl estradiol Allergy Intermediate Hives 10/20/18 Yes etonogestrel Allergy Intermediate Hives 10/20/18 Yes norelgestromin Allergy Intermediate Hives 10/20/18 Yes Vital Signs Vital Signs Date Time Temp Pulse Resp B/P (MAP) Pulse Ox O2 Delivery O2 Flow Rate FiO2 10/20/18 01:20 98.4 74 22 100 Room Air Lab Results Laboratory Tests Test 10/20/18 01:35 10/20/18 01:48 Urine Collection Type Unknown Urine Color Yellow Urine Clarity Clear Urine pH 6.0 Urine Specific [place] 1.025 Urine Protein Neg (NEG-TRACE) Urine Glucose (UA) Neg mg/dL (NEG) Urine Ketones (Stick) Neg mg/dL (NEG) Urine Blood Neg (NEG) Urine Nitrite Neg (NEG) Urine Bilirubin Neg (NEG) Urine Urobilinogen Dipstick 0.2 mg/dL (0.2 mg/dL) Urine Leukocyte Esterase Neg (NEG) Urine RBC 1-2 /HPF (0-2) Urine WBC 1-4 /HPF (0-4) Urine Squamous Epithelial Cells Mod /LPF Urine Bacteria Few /HPF (0-FEW) Urine Mucus Mod /LPF Urine Yeast Present /HPF Urine Test Negative (NEG) Urine Opiates Screen Neg (NEG) Urine Methadone Screen Neg (NEG) Urine Barbiturates Neg (NEG) Urine Phencyclidine Screen Neg (NEG) Urine Amphetamine/Methamphetamine Neg (NEG) Urine Benzodiazepines Screen Neg (NEG) Urine Cocaine Screen Neg (NEG) Urine Cannabinoids Screen Neg (NEG) Urine Ethyl Alcohol Neg (NEG) White Blood Count 6.0 x10^3/uL (4.0-11.0) Red Blood Count 4.40 x10^6/uL (3.50-5.40) Hemoglobin 12.7 g/dL (12.0-15.5) Hematocrit 38.0 % (36.0-47.0) Mean Corpuscular Volume 86 fL (79-100) Mean Corpuscular Hemoglobin 29 pg (25-35) Mean Corpuscular Hemoglobin Concent 33 g/dL (31-37) Red Cell Distribution Width 13.9 % (11.5-14.5) Platelet Count 294 x10^3/uL (140-400) Neutrophils (%) (Auto) 57 % (31-73) Lymphocytes (%) (Auto) 34 % (24-48) Monocytes (%) (Auto) 7 % (0-9) Eosinophils (%) (Auto) 1 % (0-3) Basophils (%) (Auto) 0 % (0-3) Neutrophils # (Auto) 3.5 x10^3uL (1.8-7.7) Lymphocytes # (Auto) 2.1 x10^3/uL (1.0-4.8) Monocytes # (Auto) 0.4 x10^3/uL (0.0-1.1) Eosinophils # (Auto) 0.1 x10^3/uL (0.0-0.7) Basophils # (Auto) 0.0 x10^3/uL (0.0-0.2) Prothrombin Time 10.2 SEC (9.4-11.4) Prothromb Time International Ratio 1.0 (0.9-1.1) Activated Partial Thromboplast Time 26 SEC (23-33) D-Dimer (Edda) 0.27 mg/L (0.00-0.50) Sodium Level 140 mmol/L (136-145) Potassium Level 3.5 mmol/L (3.5-5.1) Chloride Level 102 mmol/L (98-107) Carbon Dioxide Level 27 mmol/L (21-32) Anion Gap 11 (6-14) Blood Urea Nitrogen 13 mg/dL (7-20) Creatinine 0.7 mg/dL (0.6-1.0) Estimated GFR (Cockcroft-Gault) 104.6 Glucose Level 84 mg/dL (70-99) Calcium Level 8.9 mg/dL (8.5-10.1) Magnesium Level 1.8 mg/dL (1.8-2.4) Total Bilirubin 0.2 mg/dL (0.2-1.0) Direct Bilirubin 0.1 mg/dL (0.0-0.2) Aspartate Amino Transf (AST/SGOT) 17 U/L (15-37) Alanine Aminotransferase (ALT/SGPT) 25 U/L (14-59) Alkaline Phosphatase 63 U/L (46-116) Creatine Kinase 81 U/L (26-192) Troponin I Quantitative < 0.017 ng/mL (0-0.055) IP-Hjb-L-Type Natriuretic Peptide 36 pg/mL (0-124) Total Protein 7.9 g/dL (6.4-8.2) Albumin 3.5 g/dL (3.4-5.0) Lipase 148 U/L (73-393) Brief Hospital Course Ms. Rogers is a 22 old female who presented with chest x more than 1 month. Declined CXR and repeat labs. Discharge Information Condition at Discharge: Improved, Stable Disposition/Orders: D/C to Home Dischare Medications Current Medications Lactated Ringer's 1,000 ml @ 1,000 mls/hr Q1H IV ; Start 10/20/18 at 01:45; Stop 10/20/18 at 02:44; Status DC Ketorolac Tromethamine (Toradol 30mg Vial) 30 mg 1X ONCE IV Last administered on 10/20/18at 03:06; Admin Dose 30 MG; Start 10/20/18 at 03:00; Stop 10/20/18 at 03:01; Status DC Active Scripts Active Dragon Disclaimer This chart was dictated in whole or in part using Voice Recognition software in a busy, high-work load, and often noisy Emergency Department environment. It may contain unintended and wholly unrecognized errors or omissions. MARK SAGASTUME MD October 20, 2018 01:28
[2018-10-20] MEDS ORDERED: IV RINGERS SOLUTION,LACTATED 1,000 ML IV SCH (01:45)
[2018-10-20 02:10] LABS: BASO % 0 % (0-3); EOS # 0.1 x10^3/uL (0.0-0.7); EOS % 1 % (0-3); HEMOGLOBIN 12.7 g/dL (12.0-15.5); LYMPH # 2.1 x10^3/uL (1.0-4.8); LYMPH % 34 % (24-48); MEAN CORPUSCULAR HEMOGLOBIN 29 pg (25-35); MEAN CORPUSCULAR HGB CONC 33 g/dL (31-37); MEAN CORPUSCULAR VOLUME 86 fL (79-100); MONO # 0.4 x10^3/uL (0.0-1.1); MONO % 7 % (0-9); NEUT # 3.5 x10^3uL (1.8-7.7); NEUT % 57 % (31-73); PLATELET COUNT 294 x10^3/uL (140-400); RED CELL DISTRIBUTION WIDTH 13.9 % (11.5-14.5)
[2018-10-20 02:10] LABS: BARBITURATES NEG (NEG); BENZODIAZEPINES NEG (NEG); CANNABINOIDS NEG (NEG); COCAINE NEG (NEG); METHADONE NEG (NEG); OPIATES NEG (NEG); PHENCYCLIDINE NEG (NEG)
[2018-10-20 02:11] LABS: AMPHETAMINE/METHAMPHETAMINE NEG (NEG)
[2018-10-20 02:19] LABS: BACTERIA,URINE FEW /HPF (0-FEW); BILIRUBIN,URINE NEG (NEG); CLARITY,URINE CLEAR; COLOR,URINE YELLOW; GLUCOSE,URINE NEG (NEG); NITRITE,URINE NEG (NEG); SQUAMOUS EPITHELIAL CELL,UR MOD /LPF; UROBILINOGEN,URINE 0.2 mg/dL (0.2 mg/dL); YEAST,URINE PRESENT /HPF
[2018-10-20 02:26] LABS: ALBUMIN 3.5 g/dL (3.4-5.0); CALCIUM 8.9 mg/dL (8.5-10.1); DIRECT BILIRUBIN 0.1 mg/dL (0.0-0.2); MAGNESIUM 1.8 mg/dL (1.8-2.4); POTASSIUM 3.5 mmol/L (3.5-5.1); TOTAL BILIRUBIN 0.2 mg/dL (0.2-1.0); TOTAL PROTEIN 7.9 g/dL (6.4-8.2)
[2018-10-20 02:30] VITALS: BP 118/78
[2018-10-20 02:31] LABS: CREATININE 0.7 mg/dL (0.6-1.0); GFR 104.6
[2018-10-20 02:35] LABS: U PREG PATIENT NEGATIVE (NEG)
[2018-10-20] MEDS ORDERED: KETOROLAC 30 MG/ML VIAL. IV ONE (03:00)
[2018-10-20 10:25] LABS: THYROID STIM HORMONE (TSH) 1.366 uIU/mL (0.358-3.740)
--- NOTE | 2018-10-21 06:32 | EKG ---
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 Electronically Signed On 10-23-2018 15:56:15 CDT by Rosalio Boyle
== END 2018-10-20 03:12 | disposition home or self-care (01) ==
LOC: ER 01:16
DX: R07.89 Other chest pain (principal); Z88.8 Allergy status to other drugs, medicaments and biological substances
CPT/HCPCS: 36415; 80048; 80061; 80076; 80307; 81001; 81025; 82550; 83690; 83735; 83880; 84443; 84484; 85025; 85379; 85610; 85730; 93005; 96374; 99285; J1885

== ENCOUNTER 2018-10-27 13:45 | Emergency (ER) | payer OTHER ==
[2018-10-27 14:00] VITALS: BP 122/82
--- NOTE | 2018-10-27 14:05 | EKG ---
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
[2018-10-27] MEDS ORDERED: KETOROLAC 15 MG/ML VIAL. IV ONE (14:30)
--- NOTE | 2018-10-27 14:31 | PHYS DOC ---
Past History Past Medical History: No Pertinent History Past Surgical History: Cholecystectomy, Other Additional Past Surgical Histo: Hand surgery Smoking: Non-smoker Alcohol Use: None Drug Use: None Adult General Chief Complaint Chief Complaint: CHEST PAIN HPI HPI Patient is a 22-year-old female presents complaining of chest discomfort since August 2018. It is mid chest. Worse with movement and exertion. Patient denies any PE risk factors to include trauma or recent surgery, stasis or long trips, or a known hypercoagulable state. Patient denies any fever. Reports a mild cough. Discomfort becomes worse with coughing. Denies any leg swelling. Denies any radiation of the discomfort. 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 No significant relief with ibuprofen. Patient has not seen her primary care physician for this, reporting that she has an appointment this next week.[] Review of Systems Review of Systems Constitutional: Denies fever or chills [] Eyes: Denies change in visual acuity, redness, or eye pain [] HENT: Denies nasal congestion or sore throat [] Respiratory: Denies cough or shortness of breath [] Cardiovascular: No additional information not addressed in HPI [] GI: Denies abdominal pain, nausea, vomiting, bloody stools or diarrhea [] : Denies dysuria or hematuria [] Musculoskeletal: Denies back pain or joint pain [] Integument: Denies rash or skin lesions [] Neurologic: Denies headache, focal weakness or sensory changes [] Endocrine: Denies polyuria or polydipsia [] All other systems were reviewed and found to be within normal limits, except as documented in this note. Family History Family History Mother with a history of prolonged QT syndrome and has a pacemaker. No other family significant cardiac history Current Medications Current Medications Current Medications Medications (Trade) Dose Ordered Sig/Edgar Start Time Stop Time Status Last Admin Dose Admin Ketorolac Tromethamine (Toradol 15mg Vial) 15 mg 1X ONCE 10/27/18 14:30 10/27/18 14:31 UNV Allergies Allergies Allergies Coded Allergies Type Severity Reaction Last Updated Verified ethinyl estradiol Allergy Intermediate Hives 10/20/18 Yes etonogestrel Allergy Intermediate Hives 10/20/18 Yes norelgestromin Allergy Intermediate Hives 10/20/18 Yes Physical Exam Physical Exam Constitutional: Well developed, well nourished, no acute distress, non-toxic appearance. [] HENT: Normocephalic, atraumatic, bilateral external ears normal, oropharynx moist, no oral exudates, nose normal. [] Eyes: PERRLA, EOMI, conjunctiva normal, no discharge. [] Neck: Normal range of motion, no tenderness, supple, no stridor. [] Cardiovascular:Heart rate regular rhythm, no murmur [] Lungs & Thorax: Bilateral breath sounds clear to auscultation. Tenderness to palpation of the costal cartilages bilateral reference the sternum. This re- creates the pain. [] Abdomen: Bowel sounds normal, soft, no tenderness, no masses, no pulsatile masses. [] Skin: Warm, dry, no erythema, no rash. [] Back: No tenderness, no CVA tenderness. [] Extremities: No tenderness, no cyanosis, no clubbing, ROM intact, no edema. [] Neurologic: Alert and oriented X 3, normal motor function, normal sensory function, no focal deficits noted. [] Psychologic: Affect normal, judgement normal, mood normal. [] EKG EKG EKG shows a sinus rhythm at 78 bpm, normal axis, QTC of 430 ms, no ST elevations. Interpreted by me at 1357[] Radiology/Procedures Radiology/Procedures PROCEDURE: CHEST PA & LATERAL PA and lateral chest radiographs 10/27/2018 CLINICAL HISTORY: Chest pain. PA and lateral digital radiographs of the chest were obtained. Comparison study is dated 02/06/2018. Surgical clips are seen within the right upper quadrant abdomen consistent with a cholecystectomy. The cardiac and mediastinal silhouettes are within normal limits in size and configuration. No acute pulmonary infiltrate is seen. No pleural effusion or pneumothorax is noted. The osseous structures are grossly intact. IMPRESSION: No acute abnormality is seen.[] Course & Med Decision Making Course & Med Decision Making Pertinent Labs and Imaging studies reviewed. (See chart for details) ED course: Patient arrived, was placed in bed, and tolerated exam well. She was transported to and from radiology with any complications. She achieved pain control with the medication administered. After the return of laboratory and imaging studies, these were discussed with the patient and her mother, both of whom voiced understanding. All questions were answered. She was discharged in improved condition. Medical decision making: This does not appear to be an acute coronary syndrome, no evidence of pneumonia or pneumothorax. No evidence of pulmonary embolism, thoracic aneurysm dissection, nor esophageal rupture. This appears to be more of a chest wall/costochondritis issue with the discomfort increasing her blood pressure. Her blood pressure has been good while in the emergency department. Do not see a need for urgent intervention in her blood pressure. Her blood pressure may also be increased due to her NSAID use.[] Dragon Disclaimer Dragon Disclaimer This electronic medical record was generated, in whole or in part, using a voice recognition dictation system. Departure Departure: Impression: Primary Impression: Costochondral chest pain Disposition: HOME, SELF-CARE Condition: IMPROVED Referrals: ANGELA MONTERROSO (PCP) Follow-up in 2 days Patient Instructions: Costochondritis Additional Instructions: Follow-up with your regular doctor in 2 days. Return to the ER if worsening discomfort or any other concerns. Scripts Tramadol Hcl (TRAMADOL HCL) 50 Mg Tablet 50 MG PO PRN Q6HRS PRN for PAIN, #20 TAB Prov: NEREYDA MCPHERSON DO 10/27/18 Meloxicam (MELOXICAM) 7.5 Mg Tablet 7.5 MG PO DAILY for PAIN, #20 TAB Prov: NEREYDA MCPHERSON DO 10/27/18 NEREYDA MCPHERSON DO October 27, 2018 14:31
[2018-10-27 14:39] LABS: BASO % 1 % (0-3); EOS # 0.1 x10^3/uL (0.0-0.7); EOS % 1 % (0-3); HEMATOCRIT 40.6 % (36.0-47.0); HEMOGLOBIN 13.4 g/dL (12.0-15.5); LYMPH # 1.7 x10^3/uL (1.0-4.8); LYMPH % 42 % (24-48); MEAN CORPUSCULAR HEMOGLOBIN 29 pg (25-35); MEAN CORPUSCULAR HGB CONC 33 g/dL (31-37); MEAN CORPUSCULAR VOLUME 87 fL (79-100); MONO # 0.5 x10^3/uL (0.0-1.1); MONO % 11 % (0-9); NEUT # 1.9 x10^3uL (1.8-7.7); NEUT % 45 % (31-73); PLATELET COUNT 343 x10^3/uL (140-400); RED BLOOD COUNT 4.67 x10^6/uL (3.50-5.40); WHITE BLOOD COUNT 4.1 x10^3/uL (4.0-11.0)
--- NOTE | 2018-10-27 14:42 | RAD ---
PA and lateral chest radiographs 10/27/2018 CLINICAL HISTORY: Chest pain. PA and lateral digital radiographs of the chest were obtained. Comparison study is dated 02/06/2018. Surgical clips are seen within the right upper quadrant abdomen consistent with a cholecystectomy. The cardiac and mediastinal silhouettes are within normal limits in size and configuration. No acute pulmonary infiltrate is seen. No pleural effusion or pneumothorax is noted. The osseous structures are grossly intact. IMPRESSION: No acute abnormality is seen. Electronically signed by: Gregg Geronimo MD (10/27/2018 2:39 PM) [facility]
[2018-10-27 14:54] LABS: BARBITURATES NEG (NEG); BENZODIAZEPINES NEG (NEG); CANNABINOIDS NEG (NEG); COCAINE NEG (NEG); METHADONE NEG (NEG); OPIATES NEG (NEG); PHENCYCLIDINE NEG (NEG)
[2018-10-27 14:56] LABS: BILIRUBIN,URINE NEG (NEG); CLARITY,URINE HAZY; COLOR,URINE YELLOW; GLUCOSE,URINE NEG (NEG); PREG TEST PT QUAL NEGATIVE (NEG)
[2018-10-27 14:57] LABS: AMORPHOUS SEDIMENT,UR PRESENT /HPF; BACTERIA,URINE MOD /HPF (0-FEW); NITRITE,URINE NEG (NEG); RBC,URINE OCC /HPF (0-2); SQUAMOUS EPITHELIAL CELL,UR MANY /LPF; UROBILINOGEN,URINE 0.2 mg/dL (0.2 mg/dL); YEAST,URINE PRESENT /HPF
[2018-10-27 14:58] LABS: ALBUMIN 3.9 g/dL (3.4-5.0); ALBUMIN/GLOBULIN RATIO 0.9 (1.0-1.7); CALCIUM 9.5 mg/dL (8.5-10.1); CREATININE 0.9 mg/dL (0.6-1.0); GFR 78.3; POTASSIUM 3.6 mmol/L (3.5-5.1); TOTAL BILIRUBIN 0.4 mg/dL (0.2-1.0); TOTAL PROTEIN 8.2 g/dL (6.4-8.2)
[2018-10-27 15:00] LABS: AMPHETAMINE/METHAMPHETAMINE NEG (NEG)
[2018-10-27] MEDS ORDERED: TRAM50TA PO (15:20)
[2018-10-27] MEDS ORDERED: MELO7.5T29 PO (15:20)
== END 2018-10-27 15:30 | disposition home or self-care (01) ==
LOC: ER 13:45
DX: M94.0 Chondrocostal junction syndrome [Tietze] (principal); Z88.8 Allergy status to other drugs, medicaments and biological substances
CPT/HCPCS: 36415; 71046; 80053; 80307; 81001; 83690; 83735; 83880; 84484; 84703; 85025; 85379; 85610; 87086; 93005; 96374; 99285; J1885

== ENCOUNTER 2018-11-30 13:38 | Emergency (ER) | payer OTHER ==
[~2018-11-30] VITALS: Ht 160 cm; Wt 51.4 kg
[~2018-11-30 13:38] MED LIST changes: +MELO7.5T29 PO; +TRAM50TA PO
[2018-11-30 13:48] VITALS: BP 136/94
[2018-11-30] MEDS ORDERED: ACETAMINOPHEN 500 MG TABLET PO ONE (14:05)
[2018-11-30] MEDS ORDERED: KETOROLAC 15 MG/ML VIAL. ONE (14:05)
[2018-11-30] MEDS ORDERED: OXAP600T2 PO (14:27)
[2018-11-30] MEDS ORDERED: PRED50TA PO (14:27)
--- NOTE | 2018-11-30 14:27 | PHYS DOC ---
Past History Past Medical History: No Pertinent History Past Surgical History: Cholecystectomy, Other Additional Past Surgical Histo: Hand surgery Smoking: Non-smoker Alcohol Use: None Drug Use: None Adult General Chief Complaint Chief Complaint: CHEST WALL PAIN HPI HPI Patient is a 22-year-old female has had midsternal chest pain since August 2018. She was seen in the emergency department for this diagnosed with costochondritis. She has followed up with her primary care team who continue to believe that this is costochondritis. She denies any worsening with exertion. Denies any PE risk factors. Denies any cough. Denies any trauma. Previous medication did not significantly improve the discomfort. She has not been on any steroids for this. Pain is moderate to severe. No radiation of the discomfort.[] Review of Systems Review of Systems Constitutional: Denies fever or chills [] Eyes: Denies change in visual acuity, redness, or eye pain [] HENT: Denies nasal congestion or sore throat [] Respiratory: Denies cough or shortness of breath [] Cardiovascular: No additional information not addressed in HPI [] GI: Denies abdominal pain, nausea, vomiting, bloody stools or diarrhea [] : Denies dysuria or hematuria [] Musculoskeletal: Denies back pain or joint pain [] Integument: Denies rash or skin lesions [] Neurologic: Denies headache, focal weakness or sensory changes [] Endocrine: Denies polyuria or polydipsia [] All other systems were reviewed and found to be within normal limits, except as documented in this note. Current Medications Current Medications Current Medications Medications (Trade) Dose Ordered Sig/[facility] Start Time Stop Time Status Last Admin Dose Admin Acetaminophen (Tylenol) 500 mg STK-MED ONCE 11/30/18 14:05 11/30/18 14:06 DC Ketorolac Tromethamine (Toradol 15mg Vial) 15 mg STK-MED ONCE 11/30/18 14:05 11/30/18 14:06 DC Allergies Allergies Allergies Coded Allergies Type Severity Reaction Last Updated Verified ethinyl estradiol Allergy Intermediate Hives 10/20/18 Yes etonogestrel Allergy Intermediate Hives 10/20/18 Yes norelgestromin Allergy Intermediate Hives 10/20/18 Yes Physical Exam Physical Exam Constitutional: Well developed, well nourished, no acute distress, non-toxic appearance. [] HENT: Normocephalic, atraumatic, bilateral external ears normal, oropharynx moist, no oral exudates, nose normal. [] Eyes: PERRLA, EOMI, conjunctiva normal, no discharge. [] Neck: Normal range of motion, no tenderness, supple, no stridor. [] Cardiovascular:Heart rate regular rhythm, no murmur [] Lungs & Thorax: Bilateral breath sounds clear to auscultation . Tenderness to palpation of the sternum, this re-creates the pain. There is no flail segment noted. No crepitus. No subcutaneous emphysema.[] Abdomen: Bowel sounds normal, soft, no tenderness, no masses, no pulsatile masses. [] Skin: Warm, dry, no erythema, no rash. [] Back: No tenderness, no CVA tenderness. [] Extremities: No tenderness, no cyanosis, no clubbing, ROM intact, no edema. [] Neurologic: Alert and oriented X 3, normal motor function, normal sensory function, no focal deficits noted. [] Psychologic: Affect normal, judgement normal, mood normal. [] Current Patient Data Vital Signs Vital Signs Date Time Temp Pulse Resp B/P (MAP) Pulse Ox O2 Delivery O2 Flow Rate FiO2 11/30/18 13:48 97.9 89 20 98 Room Air EKG EKG EKG shows a sinus rhythm at 65 bpm, normal axis, normal QTC, no ST elevations. Interpreted by me at 1352.[] Radiology/Procedures Radiology/Procedures [] Course & Med Decision Making Course & Med Decision Making Pertinent Labs and Imaging studies reviewed. (See chart for details) Medical decision making: Patient with 3 months of chest discomfort after previous workup. Do not see any evidence of this being pneumothorax, pneumonia, pulmonary embolism, nor acute coronary syndrome. No evidence of thoracic dissection. No esophageal disruption. Will attempt to provide better pain management and which she has previously been given.[] Dragon Disclaimer Dragon Disclaimer This electronic medical record was generated, in whole or in part, using a voice recognition dictation system. Departure Departure: Impression: Primary Impression: Costochondritis Disposition: 01 HOME, SELF-CARE Condition: IMPROVED Referrals: ANGELA MONTERROSO (PCP) Follow-up in 2 days Patient Instructions: Costochondritis Additional Instructions: Follow-up with your regular doctor in 2 days. Take the medication as prescribed. Return to the ER if worsening discomfort, difficulty breathing, or any other concerns. Scripts Oxaprozin (OXAPROZIN) 600 Mg Tablet 600 MG PO BID for PAIN, #20 TAB Prov: NEREYDA MCPHERSON DO 11/30/18 Prednisone (PREDNISONE) 50 Mg Tablet 1 TAB PO DAILY for INFLAMMATION, #7 TAB Prov: NEREYDA MCPHERSON DO 11/30/18 NEREYDA MCPHERSON DO Nov 30, 2018 14:27
--- NOTE | 2018-11-30 18:01 | EKG ---
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
== END 2018-11-30 14:40 | disposition home or self-care (01) ==
LOC: ER 13:38
DX: M94.0 Chondrocostal junction syndrome [Tietze] (principal); Z88.8 Allergy status to other drugs, medicaments and biological substances
CPT/HCPCS: 93005; 99283

== ENCOUNTER 2018-12-15 01:40 | Inpatient (IN) | payer OTHER ==
[~2018-12-15] VITALS: Ht 160 cm; Wt 54.1 kg
[2018-12-15] VITALS (13 sets, daily range): BP systolic 98–152; BP diastolic 66–92
[2018-12-15] MEDS: IV RINGERS SOLUTION,LACTATED 1,000 ML IV SCH ×5 (00:01→19:52)
[~2018-12-15 01:40] MED LIST changes: +OXAP600T2 PO; +PRED50TA PO
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
[2018-12-15] MEDS ORDERED: MVI, ADULT NO.4 WITH VIT K 10 ML, FOLIC ACID SYRINGE for ER 1 MG, THIAMINE INJ 100 MG i... IV ONE ×4 (02:30)
[2018-12-15 02:32] LABS: BARBITURATES NEG (NEG); BENZODIAZEPINES NEG (NEG); CANNABINOIDS NEG (NEG); COCAINE NEG (NEG); METHADONE NEG (NEG); OPIATES NEG (NEG); PHENCYCLIDINE NEG (NEG)
[2018-12-15 02:34] LABS: AMPHETAMINE/METHAMPHETAMINE NEG (NEG)
[2018-12-15 02:41] LABS: ACETAMIN < 2.0 mcg/mL (10-30); SALIC 1.4 mg/dL (2.8-20.0)
[2018-12-15 02:46] LABS: CALCIUM 8.6 mg/dL (8.5-10.1); CREATININE 0.8 mg/dL (0.6-1.0); GFR 89.7; MAGNESIUM 1.9 mg/dL (1.8-2.4)
[2018-12-15 02:49] LABS: CLARITY,URINE HAZY; COLOR,URINE YELLOW
[2018-12-15 02:50] LABS: BACTERIA,URINE MANY /HPF (0-FEW); BILIRUBIN,URINE NEG (NEG); GLUCOSE,URINE NEG (NEG); NITRITE,URINE NEG (NEG); RBC,URINE OCC /HPF (0-2); SQUAMOUS EPITHELIAL CELL,UR FEW /LPF; UROBILINOGEN,URINE 1 mg/dL (0.2 mg/dL)
[2018-12-15 02:51] LABS: AMORPHOUS SEDIMENT,UR PRESENT /HPF; GRANULAR CASTS,URINE FEW /HPF; HYALINE CASTS, URINE FEW /HPF
[2018-12-15 02:58] LABS: POTASSIUM 2.8 mmol/L (3.5-5.1)
[2018-12-15 03:00] LABS: BGAS PH 7.4 (7.35-7.45)
[2018-12-15 03:10] LABS: BASO % 0 % (0-3); EOS % 1 % (0-3); HEMATOCRIT 36.2 % (36.0-47.0); LYMPH # 1.7 x10^3/uL (1.0-4.8); LYMPH % 28 % (24-48); MEAN CORPUSCULAR HEMOGLOBIN 28 pg (25-35); MEAN CORPUSCULAR HGB CONC 33 g/dL (31-37); MEAN CORPUSCULAR VOLUME 86 fL (79-100); MONO # 0.4 x10^3/uL (0.0-1.1); MONO % 6 % (0-9); NEUT # 3.9 x10^3uL (1.8-7.7); NEUT % 65 % (31-73); PLATELET COUNT 284 x10^3/uL (140-400); RED BLOOD COUNT 4.21 x10^6/uL (3.50-5.40); RED CELL DISTRIBUTION WIDTH 13.4 % (11.5-14.5)
[2018-12-15] MEDS ORDERED: POTASSIUM CHLORIDE 20MEQ 100 ML IV SCH (03:15)
[2018-12-15] MEDS ORDERED: IV RINGERS SOLUTION,LACTATED 1,000 ML IV ONE (03:30)
[2018-12-15] MEDS: POTASSIUM CHLORIDE 10MEQ 100 ML IV SCH ×6 (03:45→11:56)
[2018-12-15] MEDS ORDERED: cefTRIAXone SODIUM 1 GM VIAL ONE (03:52)
[2018-12-15] MEDS ORDERED: IV NORMAL SALINE 50ML 50 ML ONE (03:52)
[2018-12-15] MEDS ORDERED: THIAMINE 200 MG/2 ML VIAL. IV ONE (03:53)
[2018-12-15] MEDS ORDERED: MVI, ADULT NO.4 WITH VIT K 10 ML VIAL IV ONE (03:53)
[2018-12-15] MEDS ORDERED: FOLIC ACID 5 MG/ML SYRINGE for ER IV ONE (03:53)
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
[2018-12-15] MEDS ORDERED: LIDOCAINE 1% Multi-Dose 20 ML VIAL. ONE (04:28)
[2018-12-15] MEDS ORDERED: ADENOSINE 6 MG/2 ML VIAL IV ONE ×2 (04:30→05:00)
[2018-12-15 06:51] LABS: SALIC 3.5 mg/dL (2.8-20.0)
[2018-12-15 06:52] LABS: ACETAMIN < 2.0 mcg/mL (10-30)
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
[2018-12-15] MEDS ORDERED: MVI, ADULT NO.4 WITH VIT K 10 ML, FOLIC ACID SYRINGE for ER 1 MG, THIAMINE INJ 100 MG i... IV SCH ×4 (09:00)
[2018-12-15] MEDS ORDERED: ACETAMINOPHEN 325 MG TABLET PO PRN (10:30)
[2018-12-15] MEDS ORDERED: ACETAMINOPHEN 325 MG SUPP.RECT PR PRN (10:30)
[2018-12-15 10:40] LABS: ALBUMIN 3.6 g/dL (3.4-5.0); DIRECT BILIRUBIN 0.1 mg/dL (0.0-0.2); TOTAL BILIRUBIN 0.2 mg/dL (0.2-1.0); TOTAL PROTEIN 7.4 g/dL (6.4-8.2)
--- NOTE | 2018-12-15 10:45 | EKG ---
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
[2018-12-15] MEDS ORDERED: MAGNESIUM SULFATE 1GM 100 ML IV ONE (11:00)
--- NOTE | 2018-12-15 12:59 | RAD ---
EXAM: CHEST 1 VIEW. HISTORY: Aspiration. COMPARISON: 10/27/2018. FINDINGS: A frontal view of the chest is obtained. There are no confluent infiltrates. There is no pneumothorax or pleural effusion. The heart is not enlarged. Cholecystectomy clips are noted. IMPRESSION: 1. No confluent infiltrates. Electronically signed by: Sumeet Taylor MD (12/15/2018 12:56 PM) [facility]
[2018-12-15 14:21] LABS: CALCIUM 8.8 mg/dL (8.5-10.1); CREATININE 0.7 mg/dL (0.6-1.0); GFR 104.6; POTASSIUM 3.9 mmol/L (3.5-5.1)
--- NOTE | 2018-12-15 14:45 | EKG ---
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
--- NOTE | 2018-12-15 20:22 | PDOC ---
Exam Note: [place] Note: Please also refer to the separate dictated note~for this date of service dictated separately.~Patient seen individually. Discussed the patient with Nursing staff reviewed the chart.~Reviewed interim history and current functioning. Reviewed vital signs,~Labs/ Radiology~and current medications noted below. Continue current treatment with the changes noted in the dictated addendum note Assessment: Vital Signs/I&O: Vital Signs Date Time Temp Pulse Resp B/P (MAP) Pulse Ox O2 Delivery O2 Flow Rate FiO2 12/15/18 18:53 98.0 119 22 124/86 (99) 96 Room Air I & O 12/14/18 12/14/18 12/15/18 15:00 23:00 07:00 Intake Total 3161.2 ml Balance 3161.2 ml Labs: Laboratory Tests Test 12/15/18 01:58 12/15/18 02:00 12/15/18 02:21 12/15/18 02:50 White Blood Count 6.0 x10^3/uL (4.0-11.0) Red Blood Count 4.21 x10^6/uL (3.50-5.40) Hemoglobin 12.0 g/dL (12.0-15.5) Hematocrit 36.2 % (36.0-47.0) Mean Corpuscular Volume 86 fL (79-100) Mean Corpuscular Hemoglobin 28 pg (25-35) Mean Corpuscular Hemoglobin Concent 33 g/dL (31-37) Red Cell Distribution Width 13.4 % (11.5-14.5) Platelet Count 284 x10^3/uL (140-400) Neutrophils (%) (Auto) 65 % (31-73) Lymphocytes (%) (Auto) 28 % (24-48) Monocytes (%) (Auto) 6 % (0-9) Eosinophils (%) (Auto) 1 % (0-3) Basophils (%) (Auto) 0 % (0-3) Neutrophils # (Auto) 3.9 x10^3uL (1.8-7.7) Lymphocytes # (Auto) 1.7 x10^3/uL (1.0-4.8) Monocytes # (Auto) 0.4 x10^3/uL (0.0-1.1) Eosinophils # (Auto) 0.0 x10^3/uL (0.0-0.7) Basophils # (Auto) 0.0 x10^3/uL (0.0-0.2) Prothrombin Time 9.8 SEC (9.4-11.4) Prothrombin Time INR 0.9 (0.9-1.1) PTT 23 SEC (23-33) Maternal Serum HCG Beta Subunit < 1 mIU/mL (0-6) Sodium Level 144 mmol/L (136-145) Potassium Level 2.8 mmol/L (3.5-5.1) *L Chloride Level 107 mmol/L (98-107) Carbon Dioxide Level 24 mmol/L (21-32) Anion Gap 13 (6-14) Blood Urea Nitrogen 7 mg/dL (7-20) Creatinine 0.8 mg/dL (0.6-1.0) Estimated GFR (Cockcroft-Gault) 89.7 Glucose Level 97 mg/dL (70-99) Lactic Acid Level 2.6 mmol/L (0.4-2.0) H Calcium Level 8.6 mg/dL (8.5-10.1) Magnesium Level 1.9 mg/dL (1.8-2.4) Ammonia 21 mcmol/L (11-34) Creatine Kinase 92 U/L (26-192) Troponin I Quantitative < 0.017 ng/mL (0-0.055) BY-Zkn-X-Type Natriuretic Peptide 184 pg/mL (0-124) H Salicylates Level 1.4 mg/dL (2.8-20.0) L Salicylate Last Dose Date Unknown Salicylate Last Dose Time Unknown Acetaminophen Level < 2.0 mcg/mL (10-30) L Acetaminophen Last Dose Date Unknown Acetaminophen Last Dose Time Unknown Ethyl Alcohol Level 96 mg/dL (0-10) H Urine Collection Type Unknown Urine Color Yellow Urine Clarity Hazy Urine pH 7.0 Urine Specific [place] 1.025 Urine Protein 100 mg/dl (NEG-TRACE) Urine Glucose (UA) Neg mg/dL (NEG) Urine Ketones (Stick) Neg mg/dL (NEG) Urine Blood Neg (NEG) Urine Nitrite Neg (NEG) Urine Bilirubin Neg (NEG) Urine Urobilinogen Dipstick 1 mg/dL (0.2 mg/dL) Urine Leukocyte Esterase Neg (NEG) Urine RBC Occ /HPF (0-2) Urine WBC 1-4 /HPF (0-4) Urine Squamous Epithelial Cells Few /LPF Urine Amorphous Sediment Present /HPF Urine Bacteria Many /HPF (0-FEW) Urine Hyaline Casts Few /HPF Urine Granular Casts Few /HPF Urine Mucus Marked /LPF Urine Opiates Screen Neg (NEG) Urine Methadone Screen Neg (NEG) Urine Barbiturates Neg (NEG) Urine Phencyclidine Screen Neg (NEG) Urine Amphetamine/Methamphetamine Neg (NEG) Urine Benzodiazepines Screen Neg (NEG) Urine Cocaine Screen Neg (NEG) Urine Cannabinoids Screen Neg (NEG) Urine Ethyl Alcohol Pos (NEG) POC Urine HCG, Qualitative hcg negative (Negative) Blood pH 7.40 (7.35-7.45) Blood Gas PCO2 35 mmHg (35-45) Blood Gas PO2 53 mmHg (80-100) L Blood Gas HCO3 22 mmol/L (22-26) Arterial Bld O2 Saturation (Calc) 87 % (92-99) L FiO2 21 % Test 12/15/18 05:13 12/15/18 06:21 12/15/18 08:11 12/15/18 09:30 Lactic Acid Level 3.4 mmol/L (0.4-2.0) H 4.8 mmol/L (0.4-2.0) *H Magnesium Level 1.5 mg/dL (1.8-2.4) L Total Bilirubin 0.2 mg/dL (0.2-1.0) Direct Bilirubin 0.1 mg/dL (0.0-0.2) Aspartate Amino Transferase (AST) 22 U/L (15-37) Alanine Aminotransferase (ALT) 32 U/L (14-59) Alkaline Phosphatase 47 U/L (46-116) Total Protein 7.4 g/dL (6.4-8.2) Albumin 3.6 g/dL (3.4-5.0) Salicylates Level 3.5 mg/dL (2.8-20.0) Salicylate Last Dose Date Unknown Salicylate Last Dose Time Unknown Acetaminophen Level < 2.0 mcg/mL (10-30) L Acetaminophen Last Dose Date Unknown Acetaminophen Last Dose Time Unknown Nasal Screen MRSA (PCR) Negative (Negative) Test 12/15/18 13:58 Sodium Level 138 mmol/L (136-145) Potassium Level 3.9 mmol/L (3.5-5.1) # Chloride Level 103 mmol/L (98-107) Carbon Dioxide Level 25 mmol/L (21-32) Anion Gap 10 (6-14) Blood Urea Nitrogen 4 mg/dL (7-20) L Creatinine 0.7 mg/dL (0.6-1.0) Estimated GFR (Cockcroft-Gault) 104.6 Glucose Level 94 mg/dL (70-99) Calcium Level 8.8 mg/dL (8.5-10.1) Magnesium Level 2.0 mg/dL (1.8-2.4) Creatine Kinase 88 U/L (26-192) Current Medications: Meds: Current Medications Medications (Trade) Dose Ordered Sig/Edgar Route PRN Reason Start Time Stop Time Status Last Admin Dose Admin Multivitamins/ Minerals 10 ml/ Folic Acid 1 mg/ Thiamine HCl 100 mg/Lactated Ringer's 1,011.2 ml @ 1,000 mls/ hr 1X ONCE IV 12/15/18 02:30 12/15/18 03:30 DC 12/15/18 04:02 Lactated Ringer's 1,000 ml @ 200 mls/hr Q5H IV 12/15/18 03:00 12/15/18 19:52 Ceftriaxone Sodium 1 gm/ Sodium Chloride 50 ml @ 100 mls/hr 1X ONCE IV 12/15/18 03:00 12/15/18 03:29 DC 12/15/18 04:05 Lactated Ringer's 1,000 ml @ 2,000 mls/hr 1X ONCE IV 12/15/18 03:30 12/15/18 03:59 DC 12/15/18 03:30 Potassium Chloride 100 ml @ 100 mls/hr Q1H IV 12/15/18 03:45 12/15/18 07:44 DC 12/15/18 11:56 Adenosine (Adenocard) 6 mg 1X ONCE IV 12/15/18 04:30 12/15/18 04:59 DC 12/15/18 04:56 Adenosine (Adenocard) 12 mg 1X ONCE IV 12/15/18 05:00 12/15/18 05:01 DC 12/15/18 05:15 Acetaminophen (Tylenol Supp) 325 mg PRN Q6HRS PRN MI fever 12/15/18 10:30 12/15/18 10:36 Lorazepam (Ativan Inj) 2 mg PRN Q15MIN PRN IV ANXIETY / AGITATION 12/15/18 11:00 12/15/18 20:19 Lorazepam (Ativan Inj) 1 mg PRN Q15MIN PRN IV ANXIETY / AGITATION 12/15/18 11:00 12/15/18 11:09 Magnesium Sulfate 100 ml @ 100 mls/hr 1X ONCE IV 12/15/18 11:00 12/15/18 11:59 DC 12/15/18 10:56 I have reviewed the current psychotropics carefully including drug interactions. Risk benefit ratio favors no change other than as noted in my dictated progress note. Diagnosis: Problems: (1) Anxiety disorder (2) Major depressive disorder, recurrent episode (3) Impulse control disorder ENRRIQUE TIMMONS MD Dec 15, 2018 20:22
[2018-12-16] VITALS (15 sets, daily range): BP systolic 96–133; BP diastolic 58–90
[2018-12-16] MEDS: IV RINGERS SOLUTION,LACTATED 1,000 ML IV SCH ×4 (04:00→17:24)
[2018-12-16 06:43] LABS: BASO % 1 % (0-3); EOS # 0.1 x10^3/uL (0.0-0.7); EOS % 1 % (0-3); HEMATOCRIT 36.9 % (36.0-47.0); HEMOGLOBIN 12.2 g/dL (12.0-15.5); LYMPH # 1.5 x10^3/uL (1.0-4.8); LYMPH % 26 % (24-48); MEAN CORPUSCULAR HEMOGLOBIN 29 pg (25-35); MEAN CORPUSCULAR HGB CONC 33 g/dL (31-37); MEAN CORPUSCULAR VOLUME 87 fL (79-100); MONO # 0.4 x10^3/uL (0.0-1.1); MONO % 7 % (0-9); NEUT # 3.7 x10^3uL (1.8-7.7); NEUT % 65 % (31-73); PLATELET COUNT 258 x10^3/uL (140-400); RED BLOOD COUNT 4.25 x10^6/uL (3.50-5.40); RED CELL DISTRIBUTION WIDTH 13.9 % (11.5-14.5); WHITE BLOOD COUNT 5.6 x10^3/uL (4.0-11.0)
[2018-12-16 06:56] LABS: CALCIUM 8.9 mg/dL (8.5-10.1); CREATININE 0.8 mg/dL (0.6-1.0); GFR 89.7; POTASSIUM 3.6 mmol/L (3.5-5.1)
--- NOTE | 2018-12-16 07:50 | EKG ---
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
--- NOTE | 2018-12-16 07:51 | EKG ---
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
[2018-12-16] MEDS ORDERED: MVI, ADULT NO.4 WITH VIT K 10 ML, FOLIC ACID SYRINGE for ER 1 MG, THIAMINE INJ 100 MG i... IV SCH ×4 (09:00)
--- NOTE | 2018-12-16 19:16 | PDOC ---
Exam Note: [place] Note: Please also refer to the separate dictated note~for this date of service dictated separately.~Patient seen individually. Discussed the patient with Nursing staff reviewed the chart.~Reviewed interim history and current functioning. Reviewed vital signs,~Labs/ Radiology~and current medications noted below. Continue current treatment with the changes noted in the dictated addendum note Assessment: Vital Signs/I&O: Vital Signs Date Time Temp Pulse Resp B/P (MAP) Pulse Ox O2 Delivery O2 Flow Rate FiO2 12/16/18 18:53 99.4 85 18 114/75 (88) 94 Room Air I & O 12/15/18 12/15/18 12/16/18 15:00 23:00 07:00 Intake Total 4100 ml 1000 ml Output Total 2750 ml 1850 ml 1400 ml Balance 1350 ml -850 ml -1400 ml Labs: Laboratory Tests Test 12/16/18 05:48 White Blood Count 5.6 x10^3/uL (4.0-11.0) Red Blood Count 4.25 x10^6/uL (3.50-5.40) Hemoglobin 12.2 g/dL (12.0-15.5) Hematocrit 36.9 % (36.0-47.0) Mean Corpuscular Volume 87 fL (79-100) Mean Corpuscular Hemoglobin 29 pg (25-35) Mean Corpuscular Hemoglobin Concent 33 g/dL (31-37) Red Cell Distribution Width 13.9 % (11.5-14.5) Platelet Count 258 x10^3/uL (140-400) Neutrophils (%) (Auto) 65 % (31-73) Lymphocytes (%) (Auto) 26 % (24-48) Monocytes (%) (Auto) 7 % (0-9) Eosinophils (%) (Auto) 1 % (0-3) Basophils (%) (Auto) 1 % (0-3) Neutrophils # (Auto) 3.7 x10^3uL (1.8-7.7) Lymphocytes # (Auto) 1.5 x10^3/uL (1.0-4.8) Monocytes # (Auto) 0.4 x10^3/uL (0.0-1.1) Eosinophils # (Auto) 0.1 x10^3/uL (0.0-0.7) Basophils # (Auto) 0.0 x10^3/uL (0.0-0.2) Sodium Level 140 mmol/L (136-145) Potassium Level 3.6 mmol/L (3.5-5.1) Chloride Level 105 mmol/L (98-107) Carbon Dioxide Level 27 mmol/L (21-32) Anion Gap 8 (6-14) Blood Urea Nitrogen 7 mg/dL (7-20) Creatinine 0.8 mg/dL (0.6-1.0) Estimated GFR (Cockcroft-Gault) 89.7 Glucose Level 80 mg/dL (70-99) Calcium Level 8.9 mg/dL (8.5-10.1) Magnesium Level 2.0 mg/dL (1.8-2.4) Current Medications: Meds: Current Medications Medications (Trade) Dose Ordered Sig/Edgar Route PRN Reason Start Time Stop Time Status Last Admin Dose Admin Multivitamins/ Minerals 10 ml/ Folic Acid 1 mg/ Thiamine HCl 100 mg/Lactated Ringer's 1,011.2 ml @ 1,011.2 mls/hr DAILY IV 12/16/18 09:00 12/16/18 11:18 DC 12/16/18 08:47 I have reviewed the current psychotropics carefully including drug interactions. Risk benefit ratio favors no change other than as noted in my dictated progress note. Diagnosis: Problems: (1) Major depressive disorder, recurrent episode (2) Impulse control disorder (3) Anxiety disorder (4) Drug overdose, intentional ENRRIQUE TIMMONS MD Dec 16, 2018 19:16
[2018-12-17] MEDS: IV RINGERS SOLUTION,LACTATED 1,000 ML IV SCH ×4 (01:17→13:38)
[2018-12-17 05:52] VITALS: BP 109/71
[2018-12-17 06:19] LABS: BASO % 1 % (0-3); EOS # 0.1 x10^3/uL (0.0-0.7); EOS % 2 % (0-3); HEMATOCRIT 33.4 % (36.0-47.0); LYMPH # 1.4 x10^3/uL (1.0-4.8); LYMPH % 31 % (24-48); MEAN CORPUSCULAR HEMOGLOBIN 29 pg (25-35); MEAN CORPUSCULAR HGB CONC 33 g/dL (31-37); MEAN CORPUSCULAR VOLUME 87 fL (79-100); MONO # 0.4 x10^3/uL (0.0-1.1); MONO % 8 % (0-9); NEUT # 2.6 x10^3uL (1.8-7.7); NEUT % 58 % (31-73); PLATELET COUNT 260 x10^3/uL (140-400); RED BLOOD COUNT 3.83 x10^6/uL (3.50-5.40); RED CELL DISTRIBUTION WIDTH 13.9 % (11.5-14.5); WHITE BLOOD COUNT 4.5 x10^3/uL (4.0-11.0)
[2018-12-17 06:21] LABS: CALCIUM 8.5 mg/dL (8.5-10.1); CREATININE 0.8 mg/dL (0.6-1.0); GFR 88.9; POTASSIUM 3.8 mmol/L (3.5-5.1)
[2018-12-17 07:27] VITALS: BP 119/89
[2018-12-17] MEDS ORDERED: MVI, ADULT NO.4 WITH VIT K 10 ML, FOLIC ACID SYRINGE for ER 1 MG, THIAMINE INJ 100 MG i... IV SCH ×4 (09:00)
[2018-12-17 09:33] VITALS: BP 120/84
--- NOTE | 2018-12-17 11:05 | PN ---
DATE: 12/16/2018 SUBJECTIVE: The patient is a 22-year-old female patient who was admitted yesterday with drug overdose. She took about 1200 mg of Benadryl and was admitted to ICU, implemented the recommendation by the Poison Control Center. She is more awake, alert and responding appropriately. She continued to have sinus tachycardia, but denied any complaint. OBJECTIVE: GENERAL: When I examined her, she looked well and was clearly in no apparent respiratory distress. No pallor, jaundice, cyanosis or thyromegaly. No jugular venous distension. No lower limb edema. VITAL SIGNS: Her heart rate was 115, blood pressure was 131/88, temperature was 98.4, respiratory rate was 20 and oxygen saturation was 98% on room air. HEAD, EYES, EARS, NOSE AND THROAT: Showed normocephalic, atraumatic. NECK: Supple. HEART: Showed normal first and second heart sounds with no gallop, rub or murmur. CHEST: Clear to auscultation. No crepitation or rhonchi. ABDOMEN: Distended, soft, nontender. No guarding or rigidity. No organomegaly. All hernial orifices intact. Bowel sounds normal. NEUROLOGIC: She was definitely more awake, alert, very emotional. All her cranial nerves are intact. She moves extremities without difficulty. Her intake over the last 24 hours was 3160 and output was recorded. LABORATORY DATA: As of this morning, her white cell count 5600, hemoglobin 12, hematocrit 36, MCV 87 and platelet count 258,000. Serum sodium this morning was 140, potassium 3.6, chloride 105, bicarbonate 27, anion gap of 8, BUN 7, creatinine 0.8, estimated GFR was 89 mL per minute. Her glucose was 80, calcium was 8.9, magnesium was 2 and her CK was 188. So in summary, this is a 22-year-old female patient who was admitted with attempted suicide by overdosing on about 1200 mg of Benadryl and we did consult Dr. Meléndez to see her. She was definitely more awake, alert, responding appropriately. All her electrolytes have normalized. However, she continued to be tachycardic, I am not sure whether this is just a response of the continued effect of Benadryl, anticholinergic effect and/or manifestation of alcohol withdrawal. We will continue with alcohol withdrawal protocol. We will continue to monitor electrolytes to make sure that they remain stable and will consult the ____ Center regarding further management. GEOFFREY LOVE MD DR: ALYSON/abdoulaye JOB#: [id number] / [id number]
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
[2018-12-17 13:40] VITALS: BP 111/71
--- NOTE | 2018-12-17 14:33 | DS ---
DATE OF DISCHARGE: HOSPITAL COURSE: This is a 23-year-old female patient who was admitted with attempted suicide by overdosing on about 1200 mg of Benadryl. She initially was completely obtunded and we did basically follow the instruction of the [facility] Control [facility] and implemented all their recommendation. She was treated with Ativan as well as replenished her magnesium and potassium. She is awake, alert and denied any complaint. PHYSICAL EXAMINATION: GENERAL: When I saw her this morning, she was resting slightly propped up in bed, in no apparent respiratory distress. No pallor, jaundice, cyanosis, or thyromegaly. No jugular venous distension. No lower limb edema. VITAL SIGNS: Her heart rate was 89, blood pressure was 120/84, temperature was 97.5, respiratory rate was 18 and oxygen saturation was 99% on room air. HEAD, EYES, EARS, NOSE AND THROAT: Showed normocephalic, atraumatic. NECK: Supple. HEART: Showed normal first and second heart sounds with no gallop, rub or murmur. CHEST: Clear to auscultation. No crepitation or rhonchi. ABDOMEN: Scaphoid, soft, nontender. NEUROLOGIC: She is awake, alert, responding appropriately. All her cranial nerves intact. She moves extremities without difficulty. She ambulates without assistance or assistive devices. Her intake over the last 24 hours was 5100, output was 6000. LABORATORY DATA: Her lab work this morning showed a white cell count 4500, hemoglobin 11, hematocrit 33, MCV 87, platelet count 260,000. Her chemistry showed a serum sodium 140, potassium 3.8, chloride 105, bicarbonate 28, anion gap of 7, BUN 10, creatinine 0.8, estimated GFR was 88 mL per minute. Her glucose was 80, calcium was 8.5, magnesium was 1.9. Her blood gases showed a pH of 7.4, pCO2 of 35, pO2 initially when she arrived was low at 53. However, today her oxygen saturation was 99% on room air. She was seen by our psychiatrist who has recommended inpatient psychiatric treatment and from a medical point of view, the patient is definitely stable. All her vital signs are normal. All her lab works have normalized. She has been up and about eating and drinking, ambulating without any assistance or assistive devices. She is not on any IV fluid and she is not receiving any medication parenterally or orally. FINAL DISCHARGE DIAGNOSIS: Suicidal attempt by overdosing on about 1200 mg of Benadryl that resulted in multiple electrolyte abnormalities including hypokalemia and hypomagnesemia, all have normalized. From a medical point of view, she is stable to be transferred to [place] for inpatient psychiatric stabilization. GEOFFREY LOVE MD DR: ALYSON/abdoulaye JOB#: [id number] / [id number]
--- NOTE | 2018-12-17 22:01 | PN ---
DATE: 12/16/2018 PSYCHIATRIC PROGRESS NOTE This is a late entry on 12/16/2018. Covers elements not covered in my initial note. SUBJECTIVE: I met with the patient in the evening. Per nursing report, the patient has been cognitively much clearer, but she is sedated consequent to still receiving Ativan per the Poison Center recommendation status post overdose on Benadryl. I have discussed the patient with Nathalie Aguilar, director of family support services at the [facility] [place] to help put in place outpatient services post-discharge. In the interim, she has been screened by [facility] and reportedly will be involuntarily transferred [facility] the state facility post-medical stabilization. REVIEW OF SYSTEMS: The patient is somewhat tired, not very verbally interactive, but when she does make eye contact she is smiling appropriately. Per nursing report, she has been reasonably oriented. MENTAL STATUS EXAM: Speech often responses monosyllabic consequent to ongoing sedation. Abstraction fair. Computation difficult to assess. No active suicidal or homicidal ideation, but she has not worked very forthcoming on questioning this and given the severity of her recent overdose, it prudence is justified for transition to the state facility for inpatient psychiatric stabilization. IMPRESSION: Unchanged from initial note. PLAN: No change from initial note. ENRRIQUE TIMMONS MD DR: ANGELICA/abdoulaye JOB#: [id number] / [id number]
== END 2018-12-17 17:54 | DRG 918 ==
LOC: ER 01:40 → ICU 07:50 → EEVIPCON 07:50
PROVIDERS: ADMIT Internal Medicine; ATTEND Internal Medicine
DX: T45.0X2A Poisoning by antiallergic and antiemetic drugs, intentional self-harm, initial encounter (principal); F05 Delirium due to known physiological condition; F33.9 Major depressive disorder, recurrent, unspecified; Z99.11 Dependence on respirator [ventilator] status; E83.42 Hypomagnesemia; E87.6 Hypokalemia; F41.9 Anxiety disorder, unspecified; F63.9 Impulse disorder, unspecified; Y90.4 Blood alcohol level of 80-99 mg/100 ml; Y92.89 Other specified places as the place of occurrence of the external cause; Z79.899 Other long term (current) drug therapy
CPT/HCPCS: 36415; 51702; 70450; 71045; 72125; 74022; 80048; 80076; 80307; 80329; 81001; 81025; 82140; 82550; 82803; 83605; 83735; 83880; 84484; 84702; 85025; 85610; 85730; 87040; 87086; 87641; 93005; 96361; 96365; 96366; 96368; 96375; 99292; G0480; J0153; J0696; J2060; J3475; J3480; J7120; 82003; 99291-25